=== PATIENT | male | born 1985 | race Caucasian/White ===

== ENCOUNTER 2017-01-17 04:37 | Emergency (ER) | payer OTHER ==
[2017-01-17] MEDS ORDERED: Ketorolac INJ* 30 MG/ML 1 ML VIAL IV ONE (04:57)
[2017-01-17] MEDS ORDERED: NS 0.9% 1000 ML* 1,000 ML IV ONE (04:57)
[2017-01-17] MEDS ORDERED: Ondansetron INJ* 2 MG/ML VIAL IV ONE ×2 (04:57→07:46)
--- NOTE | 2017-01-17 05:14 | ED ---
Chucho Sanders Salem, scribed for Cal Bledsoe MD on 01/17/17 at 0458 . Back Pain - HPI Summary HPI Summary: Patient is a 31 y/o M who presents to the ED with left flank pain for the past 3 days. He reports vomiting and nausea, but denies fever or dysuria. He reports taking Tylenol and Mylanta with little to no alleviation. PMHx significant for Polycystic kidney Disease and renal calculi. - History of Current Complaint Chief Complaint: EDFlankPain Stated Complaint: VOMITING/LOWER LEFT FLANK PAIN Time Seen by Provider: 01/17/17 04:57 Hx Obtained From: Patient Onset/Duration: Gradual Onset, Lasting Days, Still Present Onset/Duration: Started Days Ago, Atraumatic, Still Present Timing: Constant, Lasting Days Back Pain Location: Is Discrete @ - Left flank. Severity Initially: Moderate Severity Currently: Moderate Pain Intensity: 9 Pain Scale Used: 0-10 Numeric Aggravating Symptom(s): Nothing Alleviating Symptom(s): Nothing Associated Signs And Symptoms: Positive: Flank Pain - Allergies/Home Medications Allergies/Adverse Reactions: Allergies Allergy/AdvReac Type Severity Reaction Status Date / Time Penicillins Allergy Severe Anaphylatic Verified 01/17/17 04:52 Shock Hydromorphone [From Dilaudid] Allergy Intermediate Hives Verified 01/17/17 04:52 PMH/Surg Hx/FS Hx/Imm Hx History: Reports: Hx Kidney Stones, Hx Renal Disease - hx of kidney dz - Surgical History Surgery Procedure, Year, and Place: undistended testicle as a child later removed Infectious Disease History: No Infectious Disease History: Denies: Traveled Outside the [place] in Last 30 Days - Family History Known Family History: Positive: Cardiac Disease, Renal Disease - PKD Family History: Polycystic kidney dz - Social History Alcohol Use: None Hx Substance Use: No Substance Use Type: Reports: None Hx Tobacco Use: No Smoking Status (MU): Never Smoked Tobacco Review of Systems Negative: Fever Positive: Vomiting, Nausea Positive: flank pain. Negative: dysuria All Other Systems Reviewed And Are Negative: Yes Physical Exam Triage Information Reviewed: Yes Vital Signs On Initial Exam: Initial Vitals Temp Pulse Resp BP Pulse Ox 97.8 F 120 16 150/88 96 01/17/17 04:45 01/17/17 04:45 01/17/17 04:45 01/17/17 04:45 01/17/17 04:45 Vital Signs Reviewed: Yes Appearance: Positive: No Pain Distress, Obese - morbidly Skin: Positive: Warm Head/Face: Positive: Normal Head/Face Inspection Eyes: Positive: STEPHEN ENT: Positive: Hearing grossly normal Neck: Positive: Supple Respiratory/Lung Sounds: Positive: Clear to Auscultation, Breath Sounds Present Cardiovascular: Positive: RRR Abdomen Description: Positive: Nontender, Soft, Other: - obese. Negative: CVA Tenderness (R), CVA Tenderness (L) Musculoskeletal: Positive: Strength/ROM Intact Neurological: Positive: Normal Gait Diagnostics - Vital Signs Vital Signs Temp Pulse Resp BP Pulse Ox 01/17/17 04:45 97.8 F 115 20 150/88 96 - Laboratory Result Diagrams: 01/17/17 05:42 01/17/17 05:42 Lab Statement: Any lab studies that have been ordered have been reviewed, and results considered in the medical decision making process. Re-Evaluation - Re-Evaluation First Eval Re-Evaluation Time: 10:00 - DISCUSSED DISCHARGE ADN IMAGING RESULTS Back Pain Course/Dx - Course Course Of Treatment: 31 y/o M presents with left flank pain for the past 3 days. He reports vomiting and nausea, but denies fever or dysuria. Pt received fluids, Toradol, and Zofran in the ED course. Pt will be signed out at shift change. - Diagnoses Provider Diagnoses: Flank pain, PKD (polycystic kidney disease) Discharge - Discharge Plan Condition: Stable Disposition: HOME Discharge Disposition Comment: Sign out to Dr. Summers at shift change. Patient Education Materials: Autosomal Dominant Polycystic Kidney Disease (ED) , Flank Pain (ED) Referrals: Eddie Villagomez MD [Primary Care Provider] - 2 Days The documentation as recorded by the Chucho mckay Salem accurately reflects the service I personally performed and the decisions made by Rakan tim David, MD.
[2017-01-17 05:34] VITALS: BP 149/112
[2017-01-17 06:05] LABS: Hematocrit 45 % (42-52); Hemoglobin 14.1 g/dl (14.0-18.0); Mean Corpuscular HGB Conc 31 g/dl (31-36); Mean Corpuscular Hemoglobin 26 pg (27-31); Mean Corpuscular Volume 82 fL (80-94); Mean Platelet Volume 9 um3 (7.4-10.4); Red Blood Count 5.45 10^6/ul (4.0-5.4); Red Cell Distribution Width 15 % (10.5-15); White Blood Count 12.1 10^3/ul (3.5-10.8)
[2017-01-17 06:13] LABS: Albumin 4.3 g/dL (3.2-5.2); BUN/Creatinine Ratio 12.3 (8-20); C Reactive Protein 21.62 mg/L (< 5.00); Calcium 9.4 mg/dL (8.6-10.3); EGFR African American 35.1 (>60); EGFR Non-African American 27.3 (>60); Magnesium 1.7 mg/dL (1.9-2.7); Potassium 3.8 mmol/L (3.5-5.0); Total Bilirubin 0.4 mg/dL (0.2-1.0); Total Protein 8.3 g/dL (6.4-8.9)
[2017-01-17] MEDS ORDERED: fentaNYL* 50 MCG/ML 2 ML VIAL (100 MCG VIAL) IV SLOW PU ONE (07:47)
--- NOTE | 2017-01-17 08:43 | RAD ---
Indication: Left flank pain. CT of the abdomen and pelvis was performed without oral or IV contrast administration. The study is severely limited as the patient due to patient's body habitus. Multiple cysts are noted in both kidneys some of which are hyperdense. No hydronephrosis is noted. The lung bases demonstrate no pleural fluid, nodules or masses. Heart is of normal size without evidence of pericardial effusion. The liver and spleen are unremarkable. No adrenal lesions are noted. No hydroureter is identified. The urinary bladder is otherwise unremarkable with no evidence of calculi. The pancreas demonstrates no mass or pancreatic duct dilatation. No calcified gallstones are noted. No dilated loops of bowel are noted. IMPRESSION: Limited study due to patient's body habitus. Polycystic kidney disease. No evidence of obstructive uropathy is noted.
--- NOTE | 2017-01-17 18:49 | ED ---
Baljit Sanders Auryana, scribed for Kevin Summers MD on 01/17/17 at 0933 . Progress - Progress Note Progress Note: Sign out from Dr. Bledsoe to Dr. Summers at 07:00 pending management of symptoms. 31 year old male present with left sided flank pain starting 3 days ago. Tylenol LIDAR ANALYST, Toradol here in ED. Patient reports no improvement of pain. PMHx is significant for PKD. VITAL SIGNS: Reviewed. GENERAL: Patient is a obese male who is lying comfortable in the stretcher. Patient is not in any acute respiratory distress. HEAD AND FACE: Normocephalic and atraumatic. EYES: PERRLA, EOMI x 2, No injected conjunctiva. EARS: Hearing grossly intact. Ear canals and tympanic membranes are WNL. MOUTH: Oropharynx within normal limits. NECK: Supple, trachea is midline, no adenopathy, no JVD. CHEST: Symmetric, no tenderness at palpation LUNGS: Clear to auscultation bilaterally. No wheezing or crackles. CVS: RRR, S1 and S2 present, no murmurs or gallops appreciated. ABDOMEN: Soft. Tenderness at the left flank. No signs of distention. Positive bowel sounds. No rebound no guarding, and no masses palpated. No abdominal bruit or pulsations. EXTREMITIES: FROM in all major joints, no edema, no cyanosis or clubbing. NEURO: Alert and oriented x 3. No acute neurological deficits. Speech is normal. SKIN: Dry and warm - Results/Orders Results/Orders: CT ABD/PEL W/O- IMPRESSION: Limited study due to patient's body habitus. Polycystic kidney disease. No evidence of obstructive uropathy is noted. Re-Evaluation - Re-Evaluation First Eval Re-Evaluation Time: 10:00 - DISCUSSED DISCHARGE ADN IMAGING RESULTS Course/Dx - Course Course Of Treatment: Sign out from Dr. Bledsoe to Dr. Summers at 07:00 pending management of symptoms. 31 year old male present with left sided flank pain starting 3 days ago. Tylenol LIDAR ANALYST, Toradol here in ED. Patient reports no improvement of pain. PMHx is significant for PKD. On physical exam, patient has left sided flank pain. CT ABD/PEL shows PKD. Test results show WBC 21.1 and chronic renal failure. Patient was given Toradol by Dr. Bledsoe. He denies any improvement of pain. Therefore, the patient was given morphine. We did CT ABD/ PEL for patient. CT ABD/PEL IMPRESSION: Limited study due to patient's body habitus. Polycystic kidney disease. No evidence of obstructive uropathy is noted. After, the patient received more morphine and his symptoms improved. Patient is asymptomatic at this point. Therefore the patient will be discharged home with follow up to PCP. - Diagnoses Provider Diagnoses: Flank pain, PKD (polycystic kidney disease) The documentation as recorded by the Baljit mckay Auryana accurately reflects the service I personally performed and the decisions made by me, Kevin Summers MD.
== END 2017-01-17 10:18 | disposition home or self-care (01) ==
LOC: ED 04:37
DX: R10.84 Generalized abdominal pain (principal); Q61.3 Polycystic kidney, unspecified
CPT/HCPCS: 36415; 74176; 80053; 83605; 83690; 83735; 85025; 86140; 96374; 96375; 99283; J1885; J2405; J3010

== ENCOUNTER 2017-04-11 22:02 | Inpatient (IN) | payer OTHER ==
[2017-04-11] MEDS ORDERED: Ondansetron INJ* 2 MG/ML VIAL IV ONE (22:50)
[2017-04-11] MEDS ORDERED: Morphine INJ* 4 MG/ML 1 ML CARPUJECT IV ONE (22:50)
[2017-04-11] MEDS: NS 0.9% 1000 ML* 1,000 ML IV SCH (22:59)
[2017-04-11 23:11] LABS: Hematocrit 43 % (42-52); Mean Corpuscular HGB Conc 33 g/dl (31-36); Mean Corpuscular Hemoglobin 26 pg (27-31); Mean Corpuscular Volume 79 fL (80-94); Mean Platelet Volume 8 um3 (7.4-10.4); Red Blood Count 5.38 10^6/ul (4.0-5.4); Red Cell Distribution Width 16 % (10.5-15); White Blood Count 10.8 10^3/ul (3.5-10.8)
[2017-04-11 23:27] LABS: Albumin 3.8 g/dL (3.2-5.2); BUN/Creatinine Ratio 11.2 (8-20); C Reactive Protein 96.63 mg/L (< 5.00); EGFR African American 28.7 (>60); EGFR Non-African American 22.4 (>60); Globulin 4.6 g/dL (2-4); Magnesium 1.7 mg/dL (1.9-2.7); Potassium 4.5 mmol/L (3.5-5.0); Total Bilirubin 0.3 mg/dL (0.2-1.0); Total Protein 8.4 g/dL (6.4-8.9)
[2017-04-11 23:30] LABS: Troponin I 0.06 ng/mL (<0.04)
[2017-04-11 23:41] LABS: TSH (Thyroid Stimulating Horm) 2.03 mcIU/mL (0.34-5.60)
[2017-04-12] MEDS ORDERED: Morphine INJ* 4 MG/ML 1 ML CARPUJECT IV ONE (00:24)
--- NOTE | 2017-04-12 00:26 | ED ---
Giorgio Sanders Nikita, scribed for Imtiaz Pulido MD on 04/11/17 at 2255 . Complex/Multi-Sys Presentation - HPI Summary HPI Summary: This patient is a 31 year old M presenting to ED with a chief complaint of L flank pain since 5 days ago. The CC is described as non-radiating. The patient rates the pain 9/10 in severity. Symptoms aggravated by laughing and urination ( at onset, not currently). Symptoms alleviated by nothing. Patient reports nausea , vomiting, SOB, CP (tightening, since 3 days ago), and cough from allergies. Patient denies wheezing, fever, chills, chest congestion, and urinary symptoms. - History Of Current Complaint Chief Complaint: EDChestPainROMI Time Seen by Provider: 04/11/17 22:39 Hx Obtained From: Patient Onset/Duration: Sudden Onset, Lasting Days - 5 days for L flank pain, 3 days ago for CP, Still Present Timing: Constant, Days Severity Currently: Severe Severity Initially: Severe Location: Pain At: - L flank and chest Character: Pressure - chest Aggravating Factor(s): urination at onset (not currently), laughing Alleviating Factor(s): nothing Associated Signs And Symptoms: Positive: Other - Patient reports nausea, vomiting, SOB, CP (tightening, since 3 days ago), and cough from allergies. Patient denies wheezing, fever, chills, chest congestion, and urinary symptoms. - Allergies/Home Medications Allergies/Adverse Reactions: Allergies Allergy/AdvReac Type Severity Reaction Status Date / Time Penicillins Allergy Severe Anaphylatic Verified 04/11/17 22:21 Shock Hydromorphone [From Dilaudid] Allergy Intermediate Hives Verified 04/11/17 22:21 PMH/Surg Hx/FS Hx/Imm Hx History: Reports: Hx Kidney Stones, Hx Renal Disease - hx of kidney dz - Surgical History Surgery Procedure, Year, and Place: undistended testicle as a child later removed Infectious Disease History: No Infectious Disease History: Denies: Traveled Outside the [place] in Last 30 Days - Family History Known Family History: Positive: Cardiac Disease, Renal Disease - PKD Family History: Polycystic kidney dz - Social History Alcohol Use: None Hx Substance Use: No Substance Use Type: Reports: None Hx Tobacco Use: No Smoking Status (MU): Never Smoked Tobacco Review of Systems Negative: Fever, Chills Positive: Other - denies wheezing, chest congestion Positive: Chest Pain - pressure Positive: Shortness Of Breath, Cough Positive: Abdominal Pain - L flank, Vomiting, Nausea Positive: no symptoms reported All Other Systems Reviewed And Are Negative: Yes Physical Exam Triage Information Reviewed: Yes Vital Signs On Initial Exam: Initial Vitals Temp Pulse Resp BP Pulse Ox 99.0 F 114 24 177/96 96 04/11/17 22:19 04/11/17 22:19 04/11/17 22:19 04/11/17 22:19 04/11/17 22:19 Vital Signs Reviewed: Yes Appearance: Positive: Well-Appearing, Pain Distress - mild Skin: Positive: Warm, Skin Color Reflects Adequate Perfusion, Dry Head/Face: Positive: Normal Head/Face Inspection Eyes: Positive: EOMI, STEPHEN ENT: Positive: Normal ENT inspection Neck: Positive: Supple, Nontender Respiratory/Lung Sounds: Positive: Clear to Auscultation, Breath Sounds Present Cardiovascular: Positive: RRR Abdomen Description: Positive: Soft, CVA Tenderness (L) Bowel Sounds: Positive: Present Musculoskeletal: Positive: Normal, Strength/ROM Intact Neurological: Positive: Normal, Sensory/Motor Intact, Alert, Oriented to Person Place, Time Psychiatric: Positive: Affect/Mood Appropriate Diagnostics - Vital Signs Vital Signs Temp Pulse Resp BP Pulse Ox 04/11/17 22:19 99.0 F 114 24 177/96 96 - Laboratory Lab Results: Lab Results 04/11/17 04/11/17 04/11/17 Range/Units 23:00 23:00 23:00 WBC (3.5-10.8) 10^3/ul RBC (4.0-5.4) 10^6/ul Hgb (14.0-18.0) g/dl Hct (42-52) % MCV (80-94) fL MCH (27-31) pg MCHC (31-36) g/dl RDW (10.5-15) % Plt Count (150-450) 10^3/ul MPV (7.4-10.4) um3 Neut % (Auto) (38-83) % Lymph % (Auto) (25-47) % [place] % (Auto) (1-9) % Eos % (Auto) (0-6) % Baso % (Auto) (0-2) % Absolute Neuts (auto) (1.5-7.7) 10^3/ul Absolute Lymphs (auto) (1.0-4.8) 10^3/ul Absolute Monos (auto) (0-0.8) 10^3/ul Absolute Eos (auto) (0-0.6) 10^3/ul Absolute Basos (auto) (0-0.2) 10^3/ul Absolute Nucleated RBC 10^3/ul Nucleated RBC % INR (Anticoag Therapy) 1.00 (0.89-1.11) APTT 31.7 (26.0-36.3) seconds D-Dimer, Quantitative 615 H (Less Than 230) ng/mL Sodium 137 (133-145) mmol/L Potassium 4.5 (3.5-5.0) mmol/L Chloride 109 (101-111) mmol/L Carbon Dioxide 19 L (22-32) mmol/L Anion Gap 9 (2-11) mmol/L BUN 37 H (6-24) mg/dL Creatinine 3.29 H (0.67-1.17) mg/dL Est GFR ( Amer) 28.7 (>60) Est GFR (Non-Af Amer) 22.4 (>60) BUN/Creatinine Ratio 11.2 (8-20) Glucose 102 H (70-100) mg/dL Lactic Acid 1.2 (0.5-2.0) mmol/L Calcium 9.0 (8.6-10.3) mg/dL Magnesium 1.7 L (1.9-2.7) mg/dL Total Bilirubin 0.30 (0.2-1.0) mg/dL AST 15 (13-39) U/L ALT 12 (7-52) U/L Alkaline Phosphatase 81 (34-104) U/L Troponin I 0.06 H* (<0.04) ng/mL C-Reactive Protein 96.63 H (< 5.00) mg/L B-Natriuretic Peptide ( - 100) pg/mL Total Protein 8.4 (6.4-8.9) g/dL Albumin 3.8 (3.2-5.2) g/dL Globulin 4.6 H (2-4) g/dL Albumin/Globulin Ratio 0.8 L (1-3) Lipase 30 (11.0-82.0) U/L TSH 2.03 (0.34-5.60) mcIU/mL 04/11/17 04/11/17 Range/Units 23:00 23:00 WBC 10.8 (3.5-10.8) 10^3/ul RBC 5.38 (4.0-5.4) 10^6/ul Hgb 14.0 (14.0-18.0) g/dl Hct 43 (42-52) % MCV 79 L (80-94) fL MCH 26 L (27-31) pg MCHC 33 (31-36) g/dl RDW 16 H (10.5-15) % Plt Count 272 (150-450) 10^3/ul MPV 8 (7.4-10.4) um3 Neut % (Auto) 71.6 (38-83) % Lymph % (Auto) 19.3 L (25-47) % [place] % (Auto) 6.9 (1-9) % Eos % (Auto) 1.2 (0-6) % Baso % (Auto) 1.0 (0-2) % Absolute Neuts (auto) 7.7 (1.5-7.7) 10^3/ul Absolute Lymphs (auto) 2.1 (1.0-4.8) 10^3/ul Absolute Monos (auto) 0.7 (0-0.8) 10^3/ul Absolute Eos (auto) 0.1 (0-0.6) 10^3/ul Absolute Basos (auto) 0.1 (0-0.2) 10^3/ul Absolute Nucleated RBC 0.01 10^3/ul Nucleated RBC % 0 INR (Anticoag Therapy) (0.89-1.11) APTT (26.0-36.3) seconds D-Dimer, Quantitative (Less Than 230) ng/mL Sodium (133-145) mmol/L Potassium (3.5-5.0) mmol/L Chloride (101-111) mmol/L Carbon Dioxide (22-32) mmol/L Anion Gap (2-11) mmol/L BUN (6-24) mg/dL Creatinine (0.67-1.17) mg/dL Est GFR ( Amer) (>60) Est GFR (Non-Af Amer) (>60) BUN/Creatinine Ratio (8-20) Glucose (70-100) mg/dL Lactic Acid (0.5-2.0) mmol/L Calcium (8.6-10.3) mg/dL Magnesium (1.9-2.7) mg/dL Total Bilirubin (0.2-1.0) mg/dL AST (13-39) U/L ALT (7-52) U/L Alkaline Phosphatase (34-104) U/L Troponin I (<0.04) ng/mL C-Reactive Protein (< 5.00) mg/L B-Natriuretic Peptide 22 ( - 100) pg/mL Total Protein (6.4-8.9) g/dL Albumin (3.2-5.2) g/dL Globulin (2-4) g/dL Albumin/Globulin Ratio (1-3) Lipase (11.0-82.0) U/L TSH (0.34-5.60) mcIU/mL Result Diagrams: 04/11/17 23:00 04/11/17 23:00 Lab Statement: Any lab studies that have been ordered have been reviewed, and results considered in the medical decision making process. - CT Abd/Pel CT Interpretation Completed By: Radiologist - Awaiting radiologist interpretation. See [employer] for results. - EKG 2210 Cardiac Rate: Tachycardia - 113 bpm EKG Rhythm: Sinus Rhythm ST Segment: Normal Ectopy: None Complex Multi-Symp Course/Dx Assessment/Plan: This patient is a 31 year old M presenting to ED with a chief complaint of L flank pain since 5 days ago. The CC is described as non- radiating. The patient rates the pain 9/10 in severity. Symptoms aggravated by laughing and urination (at onset, not currently). Symptoms alleviated by nothing. Patient reports nausea, vomiting, SOB, CP (tightening, since 3 days ago ), and cough from allergies. Patient denies wheezing, fever, chills, chest congestion, and urinary symptoms. Awaiting radiologist interpretation for Abd/ Pel CT. See [employer] for results. EKG reveals sinus tachycardia at 113 bpm, normal ST, and no ectopy. In the ED course, pt was given fluids and pain medication. Medications reviewed. BP noted and advised to follow up with PCP. ADMIT HOSPITALIST STABLE. NO CRITICAL CARE TIME. - Diagnoses Provider Diagnoses: Flank pain, Troponin I above reference range, D-dimer, elevated, Chest pain, Shortness of breath, Polycystic kidney disease Discharge - Discharge Plan Condition: Stable Disposition: ADMITTED TO [facility] Referrals: Eddie Villagomez MD [Primary Care Provider] - The documentation as recorded by the Giorgio mckay Nikita accurately reflects the service I personally performed and the decisions made by , Imtiaz Pulido MD.
[2017-04-12] MEDS ORDERED: Melatonin (NF) 3 MG TAB PO PRN (00:32)
[2017-04-12] MEDS ORDERED: Ondansetron INJ* 2 MG/ML VIAL IV PRN (00:32)
[2017-04-12] MEDS ORDERED: Heparin VIAL(*) 5000 UNITS/ML VIAL (FIVE THOUSAND) ONE (00:45)
[2017-04-12] MEDS: Morphine INJ* 4 MG/ML 1 ML CARPUJECT IV PRN ×4 (00:47→20:25)
[2017-04-12] MEDS: Heparin VIAL(*) 5000 UNITS/ML VIAL (FIVE THOUSAND) IV SCH ×3 (00:52→17:27)
[2017-04-12] MEDS: Heparin DRIP 25,000 UNITS(*) 25,000 UNITS/500 ML BAG IVPB SCH ×2 (01:06→13:32)
--- NOTE | 2017-04-12 01:39 | HP ---
H&P (Free Text) History and Physical: PCP: Royal Villagomez MD Date/Time: 04/12/2017 0030 CC: L flank pain & chest pressure HPI: Mr Bellamy is a super morbidly obese 31YO male HX polycystic renal disease stg 4 & intermittent L flank pain presenting with onset of his typical L flank pain Thursday. This continued into Thursday when he developed N/V, last emesis morning of 04/11. Thursday he developed chest tightness similar to a previous pulled muscle but associated with painful inspiration and SOB for which his roommate insisted he come to the ED to be evaluated. He denies F/C, sweats, cough, congestion, or other issues. PMedHx PCKD CKD stg 4 heart murmur migraines HTN super morbid obesity Ambulatory Orders Nursing to reconcile. HYDROcodone/ACETAMIN 5-325 MG* [[place] 5-325 TAB*] 1 tab PO Q4H PRN #10 tab MDD 6 10/03/15 Sulfamethox/Trimethoprim DS* [Bactrim DS 800/160 TAB*] 1 tab PO BID #18 tab Allergies Penicillins Allergy (Severe, Verified 04/11/17 22:21) Anaphylatic Shock Hydromorphone [From Dilaudid] Allergy (Intermediate, Verified 04/11/17 22:21) Hives PSurgHx T&A L orchiectomy 2nd suspicion of CA, but unsure if positive SocHx: denies tobacco, alcohol, recreational drugs; lives with 2 roommates and his fiance; on disability; full code status FamHx: negative for PCKD ROS: as above, otherwise reviewed and all were negative vitals: Vital Signs Temp 37.2 C 04/11/17 22:19 Pulse 106 04/12/17 01:52 Resp 19 04/12/17 02:00 BP 152/90 04/12/17 02:00 Pulse Ox 96 04/12/17 01:52 Intake & Output 04/11/17 04/11/17 04/12/17 11:59 23:59 11:59 Weight 197.313 kg Constitutional: NAD, normally developed, super morbidly obese white male HEENM: atraumatic; sclera/conjunctiva: non-icteric/clear; hearing: clinically intact; oropharynx: clear, mucosa moist Neck: soft tissue: non-tender; thyroid: normal Pulmonary: clear to auscultation bilaterally, good aeration, no accessory muscle use CV: RR/RR, normal S1S2, no carotid bruit, no jugular venous distention, 2+ B DP/ PT, no edema Abdominal: soft, non-distended, non-tender, no rebound/guarding/rigidity, normoactive bowel sounds, no hepatosplenomegaly or masses, L>R costovertebral angle tenderness Musculoskeletal: general: grossly intact; gait: stable Integumental: normal appearance and texture of exposed skin Psychiatric orientation: AA&O to PPS affect: calm mood: pleasant eye contact: good content: reliable responses: timely insight: good to fair Testing: Lab Results 04/11/17 04/11/17 04/11/17 Range/Units 23:00 23:00 23:00 WBC (3.5-10.8) 10^3/ul RBC (4.0-5.4) 10^6/ul Hgb (14.0-18.0) g/dl Hct (42-52) % MCV (80-94) fL MCH (27-31) pg MCHC (31-36) g/dl RDW (10.5-15) % Plt Count (150-450) 10^3/ul MPV (7.4-10.4) um3 Neut % (Auto) (38-83) % Lymph % (Auto) (25-47) % [place] % (Auto) (1-9) % Eos % (Auto) (0-6) % Baso % (Auto) (0-2) % Absolute Neuts (auto) (1.5-7.7) 10^3/ul Absolute Lymphs (auto) (1.0-4.8) 10^3/ul Absolute Monos (auto) (0-0.8) 10^3/ul Absolute Eos (auto) (0-0.6) 10^3/ul Absolute Basos (auto) (0-0.2) 10^3/ul Absolute Nucleated RBC 10^3/ul Nucleated RBC % INR (Anticoag Therapy) 1.00 (0.89-1.11) APTT 31.7 (26.0-36.3) seconds D-Dimer, Quantitative 615 H (Less Than 230) ng/mL Sodium 137 (133-145) mmol/L Potassium 4.5 (3.5-5.0) mmol/L Chloride 109 (101-111) mmol/L Carbon Dioxide 19 L (22-32) mmol/L Anion Gap 9 (2-11) mmol/L BUN 37 H (6-24) mg/dL Creatinine 3.29 H (0.67-1.17) mg/dL Est GFR ( Amer) 28.7 (>60) Est GFR (Non-Af Amer) 22.4 (>60) BUN/Creatinine Ratio 11.2 (8-20) Glucose 102 H (70-100) mg/dL Lactic Acid 1.2 (0.5-2.0) mmol/L Calcium 9.0 (8.6-10.3) mg/dL Magnesium 1.7 L (1.9-2.7) mg/dL Total Bilirubin 0.30 (0.2-1.0) mg/dL AST 15 (13-39) U/L ALT 12 (7-52) U/L Alkaline Phosphatase 81 (34-104) U/L Troponin I 0.06 H* (<0.04) ng/mL C-Reactive Protein 96.63 H (< 5.00) mg/L B-Natriuretic Peptide ( - 100) pg/mL Total Protein 8.4 (6.4-8.9) g/dL Albumin 3.8 (3.2-5.2) g/dL Globulin 4.6 H (2-4) g/dL Albumin/Globulin Ratio 0.8 L (1-3) Lipase 30 (11.0-82.0) U/L TSH 2.03 (0.34-5.60) mcIU/mL 04/11/17 04/11/17 Range/Units 23:00 23:00 WBC 10.8 (3.5-10.8) 10^3/ul RBC 5.38 (4.0-5.4) 10^6/ul Hgb 14.0 (14.0-18.0) g/dl Hct 43 (42-52) % MCV 79 L (80-94) fL MCH 26 L (27-31) pg MCHC 33 (31-36) g/dl RDW 16 H (10.5-15) % Plt Count 272 (150-450) 10^3/ul MPV 8 (7.4-10.4) um3 Neut % (Auto) 71.6 (38-83) % Lymph % (Auto) 19.3 L (25-47) % [place] % (Auto) 6.9 (1-9) % Eos % (Auto) 1.2 (0-6) % Baso % (Auto) 1.0 (0-2) % Absolute Neuts (auto) 7.7 (1.5-7.7) 10^3/ul Absolute Lymphs (auto) 2.1 (1.0-4.8) 10^3/ul Absolute Monos (auto) 0.7 (0-0.8) 10^3/ul Absolute Eos (auto) 0.1 (0-0.6) 10^3/ul Absolute Basos (auto) 0.1 (0-0.2) 10^3/ul Absolute Nucleated RBC 0.01 10^3/ul Nucleated RBC % 0 INR (Anticoag Therapy) (0.89-1.11) APTT (26.0-36.3) seconds D-Dimer, Quantitative (Less Than 230) ng/mL Sodium (133-145) mmol/L Potassium (3.5-5.0) mmol/L Chloride (101-111) mmol/L Carbon Dioxide (22-32) mmol/L Anion Gap (2-11) mmol/L BUN (6-24) mg/dL Creatinine (0.67-1.17) mg/dL Est GFR ( Amer) (>60) Est GFR (Non-Af Amer) (>60) BUN/Creatinine Ratio (8-20) Glucose (70-100) mg/dL Lactic Acid (0.5-2.0) mmol/L Calcium (8.6-10.3) mg/dL Magnesium (1.9-2.7) mg/dL Total Bilirubin (0.2-1.0) mg/dL AST (13-39) U/L ALT (7-52) U/L Alkaline Phosphatase (34-104) U/L Troponin I (<0.04) ng/mL C-Reactive Protein (< 5.00) mg/L B-Natriuretic Peptide 22 ( - 100) pg/mL Total Protein (6.4-8.9) g/dL Albumin (3.2-5.2) g/dL Globulin (2-4) g/dL Albumin/Globulin Ratio (1-3) Lipase (11.0-82.0) U/L TSH (0.34-5.60) mcIU/mL ECG, personally reviewed: sinus tachycardia rate 113, no ischemia CXR, personally reviewed: no acute process, L costophrenic angle not imaged CT abd/pel WO, personally reviewed: IMPRESSION: Enlarged kidneys with cystic replacement stable from prior study. Findings suggest polycystic kidney disease and correlation with renal function is recommended. Impression: 31YO male HX PCKD stg 4 presents with L flank pain, chest tightness , SOB, N/V, an elevated d-dimer, & elevated troponin DIAGNOSIS & PLAN Primary chest tightness : elevated d-dimer & troponin are likely 2nd to CKD stg 4 but without baseline values will admit for evaluation of PE : unable to obtain CTA chest 2nd CKD stg 4 : heparin GTT, patient advised of & accepts bleeding risk : V/Q scan in AM : pain control : anti-emetics : telemetry : trend troponin : supportive care PCKD w/ L flank pain : pain control Secondary migraines : review meds once reconciled HTN : review meds once reconciled Admission Rational: CDU observation for r/o PE & ACS DVTp: heparin GTT Code Status: full
[2017-04-12] MEDS: NS 0.9% 1000 ML* 1,000 ML IV SCH ×3 (03:59→20:10)
[2017-04-12] MEDS: Omeprazole CAP* 20 MG PO SCH (06:17)
--- NOTE | 2017-04-12 07:46 | RAD ---
HISTORY: Shortness of breath COMPARISONS: None VIEWS: 3: frontal dual-energy view of the chest FINDINGS: CARDIOMEDIASTINAL SILHOUETTE: The cardiomediastinal silhouette is normal. JAD: The jad are normal. PLEURA: The costophrenic angles are sharp. No pleural abnormalities are noted. LUNG PARENCHYMA: The lungs are clear. ABDOMEN: The upper abdomen is clear. There is no subphrenic gas. BONES AND SOFT TISSUES: No bone or soft tissue abnormalities are noted. OTHER: None. IMPRESSION: NO ACTIVE CARDIOPULMONARY DISEASE.
--- NOTE | 2017-04-12 07:55 | RAD ---
CLINICAL HISTORY: Left flank pain COMPARISON: January 17, 2017 TECHNIQUE: Multiple contiguous axial CT scans were obtained of the abdomen and pelvis, without intravenous contrast enhancement. Coronal and sagittal multiplanar reformations are submitted for review. Oral contrast was not administered. FINDINGS: The study is limited by the lack of intravenous contrast. This limits evaluation of the solid organs and vasculature. Evaluation is also limited by patient body habitus. LUNG BASES: The lung bases are clear. LIVER: The liver is normal in shape, size, contour, and attenuation. BILE DUCTS: There is no intrahepatic or extrahepatic biliary dilatation. GALLBLADDER: The gallbladder is normal, without pericholecystic inflammatory change. PANCREAS: The pancreas is normal, without mass or ductal dilatation. SPLEEN: Normal in size and appearance. UPPER GI TRACT: Evaluation of the gastrointestinal tract is limited by incomplete gastric distention. The upper GI tract is unremarkable. SMALL BOWEL AND MESENTERY: The small bowel is normal in contour, course, and caliber. There is no obstruction or dilatation. COLON: The colon is normal in contour, course, caliber. There is no pericolonic inflammatory change. ADRENALS: Normal bilaterally. 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 There is no appreciable hydronephrosis. BLADDER: The bladder is smooth in contour. PELVIC ORGANS: The prostate gland is normal. The seminal vesicles are symmetric. AORTA: The aorta is normal. IVC: Unremarkable LYMPH NODES: There is no lymphadenopathy by size criteria. ABDOMINAL WALL: There is a small fat-containing right inguinal hernia. BONES AND SOFT TISSUES: Unremarkable OTHER: None IMPRESSION: STABLE APPEARANCE OF THE KIDNEYS, CONSISTENT WITH POSITIVE KIDNEY DISEASE. THERE IS NO APPRECIABLE HYDRONEPHROSIS OR NEPHROLITHIASIS.
[2017-04-12] MEDS ORDERED: HYDROcodone/ACETAMIN 5-325 MG* 1 TAB PO PRN (09:15)
--- NOTE | 2017-04-12 09:17 | PN ---
Subjective Date of Service: 04/12/17 Interval History: HOSPITALIST PROGRESS NOTE Patient seen and examined at bedside. Objective Active Medications: Acetaminophen (Tylenol Tab*) 650 mg PO Q6H PRN PRN Reason: FEVER/PAIN Hydrocodone Bitart/Acetaminophen ([place] 5-325 Tab*) 1 tab PO Q4H PRN PRN Reason: PAIN Docusate Sodium (Colace Cap*) 200 mg PO BID RADHA Heparin Sodium (Porcine) (Heparin Vial(*)) 0 units IV .PER PROTOCOL RADHA PRN Reason: Protocol Last Admin: 04/12/17 00:52 Dose: 9,800 units Sodium Chloride (Ns 0.9% 1000 Ml*) 1,000 mls @ 150 mls/hr IV PER RATE REPLACED BY [facility] Last Admin: 04/12/17 03:59 Dose: 150 mls/hr Heparin Sodium/Dextrose (Heparin Drip 25,000 Units(*)) 25,000 units in 500 mls @ 0 mls/hr IVPB .PER RATE RADHA; Per Protocol PRN Reason: Protocol Last Admin: 04/12/17 01:06 Dose: 47 mls/hr Melatonin (Melatonin (Nf)) 3 mg PO BEDTIME PRN; Protocol PRN Reason: Sleep Morphine Sulfate (Morphine Inj (Syringe)*) 4 mg IV Q4H PRN PRN Reason: PAIN Last Admin: 04/12/17 04:40 Dose: 4 mg Omeprazole (Prilosec Cap*) 20 mg PO DAILY@0600 REPLACED BY [facility] Last Admin: 04/12/17 06:17 Dose: 20 mg Ondansetron HCl (Zofran Inj*) 4 mg IV Q6H PRN PRN Reason: NAUSEA Vital Signs 04/12/17 04/12/17 04/12/17 00:47 01:00 01:52 Temperature Pulse Rate 99 106 Respiratory 20 21 20 Rate Blood Pressure 164/88 (mmHg) O2 Sat by Pulse 98 96 Oximetry 04/12/17 04/12/17 04/12/17 02:00 02:08 03:32 Temperature 98.8 F Pulse Rate 127 Respiratory 19 20 20 Rate Blood Pressure 152/90 156/96 (mmHg) O2 Sat by Pulse 93 Oximetry 04/12/17 04/12/17 04:40 05:40 Temperature Pulse Rate Respiratory 20 20 Rate Blood Pressure (mmHg) O2 Sat by Pulse Oximetry Result Diagrams: 04/11/17 23:00 04/11/17 23:00 Additional Lab and Data: Lab Results 04/11/17 04/11/17 04/11/17 Range/Units 23:00 23:00 23:00 WBC (3.5-10.8) 10^3/ul RBC (4.0-5.4) 10^6/ul Hgb (14.0-18.0) g/dl Hct (42-52) % MCV (80-94) fL MCH (27-31) pg MCHC (31-36) g/dl RDW (10.5-15) % Plt Count (150-450) 10^3/ul MPV (7.4-10.4) um3 Neut % (Auto) (38-83) % Lymph % (Auto) (25-47) % [place] % (Auto) (1-9) % Eos % (Auto) (0-6) % Baso % (Auto) (0-2) % Absolute Neuts (auto) (1.5-7.7) 10^3/ul Absolute Lymphs (auto) (1.0-4.8) 10^3/ul Absolute Monos (auto) (0-0.8) 10^3/ul Absolute Eos (auto) (0-0.6) 10^3/ul Absolute Basos (auto) (0-0.2) 10^3/ul Absolute Nucleated RBC 10^3/ul Nucleated RBC % INR (Anticoag Therapy) 1.00 (0.89-1.11) APTT 31.7 (26.0-36.3) seconds D-Dimer, Quantitative 615 H (Less Than 230) ng/mL Sodium 137 (133-145) mmol/L Potassium 4.5 (3.5-5.0) mmol/L Chloride 109 (101-111) mmol/L Carbon Dioxide 19 L (22-32) mmol/L Anion Gap 9 (2-11) mmol/L BUN 37 H (6-24) mg/dL Creatinine 3.29 H (0.67-1.17) mg/dL Est GFR ( Amer) 28.7 (>60) Est GFR (Non-Af Amer) 22.4 (>60) BUN/Creatinine Ratio 11.2 (8-20) Glucose 102 H (70-100) mg/dL Lactic Acid 1.2 (0.5-2.0) mmol/L Calcium 9.0 (8.6-10.3) mg/dL Magnesium 1.7 L (1.9-2.7) mg/dL Total Bilirubin 0.30 (0.2-1.0) mg/dL AST 15 (13-39) U/L ALT 12 (7-52) U/L Alkaline Phosphatase 81 (34-104) U/L Troponin I 0.06 H* (<0.04) ng/mL C-Reactive Protein 96.63 H (< 5.00) mg/L B-Natriuretic Peptide ( - 100) pg/mL Total Protein 8.4 (6.4-8.9) g/dL Albumin 3.8 (3.2-5.2) g/dL Globulin 4.6 H (2-4) g/dL Albumin/Globulin Ratio 0.8 L (1-3) Lipase 30 (11.0-82.0) U/L TSH 2.03 (0.34-5.60) mcIU/mL 04/11/17 04/11/17 Range/Units 23:00 23:00 WBC 10.8 (3.5-10.8) 10^3/ul RBC 5.38 (4.0-5.4) 10^6/ul Hgb 14.0 (14.0-18.0) g/dl Hct 43 (42-52) % MCV 79 L (80-94) fL MCH 26 L (27-31) pg MCHC 33 (31-36) g/dl RDW 16 H (10.5-15) % Plt Count 272 (150-450) 10^3/ul MPV 8 (7.4-10.4) um3 Neut % (Auto) 71.6 (38-83) % Lymph % (Auto) 19.3 L (25-47) % [place] % (Auto) 6.9 (1-9) % Eos % (Auto) 1.2 (0-6) % Baso % (Auto) 1.0 (0-2) % Absolute Neuts (auto) 7.7 (1.5-7.7) 10^3/ul Absolute Lymphs (auto) 2.1 (1.0-4.8) 10^3/ul Absolute Monos (auto) 0.7 (0-0.8) 10^3/ul Absolute Eos (auto) 0.1 (0-0.6) 10^3/ul Absolute Basos (auto) 0.1 (0-0.2) 10^3/ul Absolute Nucleated RBC 0.01 10^3/ul Nucleated RBC % 0 INR (Anticoag Therapy) (0.89-1.11) APTT (26.0-36.3) seconds D-Dimer, Quantitative (Less Than 230) ng/mL Sodium (133-145) mmol/L Potassium (3.5-5.0) mmol/L Chloride (101-111) mmol/L Carbon Dioxide (22-32) mmol/L Anion Gap (2-11) mmol/L BUN (6-24) mg/dL Creatinine (0.67-1.17) mg/dL Est GFR ( Amer) (>60) Est GFR (Non-Af Amer) (>60) BUN/Creatinine Ratio (8-20) Glucose (70-100) mg/dL Lactic Acid (0.5-2.0) mmol/L Calcium (8.6-10.3) mg/dL Magnesium (1.9-2.7) mg/dL Total Bilirubin (0.2-1.0) mg/dL AST (13-39) U/L ALT (7-52) U/L Alkaline Phosphatase (34-104) U/L Troponin I (<0.04) ng/mL C-Reactive Protein (< 5.00) mg/L B-Natriuretic Peptide 22 ( - 100) pg/mL Total Protein (6.4-8.9) g/dL Albumin (3.2-5.2) g/dL Globulin (2-4) g/dL Albumin/Globulin Ratio (1-3) Lipase (11.0-82.0) U/L TSH (0.34-5.60) mcIU/mL Assess/Plan/Problems-Billing Assessment:
[2017-04-12] MEDS: Docusate CAP* 100 MG PO SCH ×2 (09:25→20:11)
[2017-04-12] MEDS: Acetaminophen TAB* 325 MG PO PRN (09:25)
[2017-04-12 10:31] LABS: Urine Bacteria Absent (Absent); Urine Bilirubin Negative (Negative); Urine Glucose Negative (Negative); Urine Nitrite Negative (Negative)
--- NOTE | 2017-04-12 12:10 | RAD ---
HISTORY: Possible pulmonary embolism, rule out DVT COMPARISONS: None relevant TECHNIQUE: Multiple transverse and longitudinal ultrasound images were obtained of the bilateral lower extremities from the level of the common femoral vein inferiorly through to the infrapopliteal veins using grayscale, color Doppler, and spectral Doppler imaging with and without compression and with augmentation. FINDINGS: Evaluation is limited by body habitus. The left peroneal veins are not well visualized. VEINS: The venous system of the bilateral lower extremities is compressible throughout its course, with normal flow on color Doppler imaging and normal response to augmentation on spectral Doppler imaging. SOFT TISSUES: Unremarkable. OTHER FINDINGS: None. IMPRESSION: NO RIGHT LOWER EXTREMITY DEEP VEIN THROMBOSIS. NO LEFT LOWER EXTREMITY DEEP VEIN THROMBOSIS
--- NOTE | 2017-04-12 13:06 | RAD ---
HISTORY: Pelvic kidney disease, urinary retention COMPARISONS: CT dated April 11, 2017 TECHNIQUE: Multiple transverse and longitudinal ultrasound images were obtained of the kidneys and bladder using grayscale and color Doppler imaging. FINDINGS: The study is limited by patient body habitus. RIGHT KIDNEY: The renal parenchyma is essentially replaced by multiple cysts. There is no hydronephrosis or nephrolithiasis. The right kidney measures 8.7 x 15.3 x 12.2 cm. LEFT KIDNEY: The renal parenchyma is essentially replaced by multiple cysts. There is no hydronephrosis or nephrolithiasis. The left kidney measures 10.9 x 14.2 x 14.3 cm. BLADDER: The bladder is smooth in contour. Bilateral ureteral jets are identified. The patient voided shortly before the examination. The bladder volume at the time of examination is 133 mL. AORTA AND IVC: No images are submitted of the vasculature. RETROPERITONEUM: Unremarkable. OTHER: None. IMPRESSION: THE RENAL PARENCHYMA IS ESSENTIALLY REPLACED BY INNUMERABLE CYSTS CONSISTENT WITH THE HISTORY OF POLYCYSTIC KIDNEY DISEASE. THE BLADDER VOLUME AT THE TIME OF EXAMINATION IS 133 ML. THE PATIENT REPORTEDLY VOIDED SHORTLY BEFORE THE EXAMINATION.
--- NOTE | 2017-04-12 16:24 | PN ---
Hospitalist Progress Note HOSPITALIST ADDENDUM Mr. Bellamy is a 31yo M with PMH of polycycstic kidney disease, CKD stage 4, super morbid obesity, HTN, migraines, who presented to ED with c/o left flank pain, pleuritic retrosternal CP and dyspnea. He was found to have a minimally elevated troponin and positive d-Dimer. Due to weight limits, V/Q scan is not possible, and due to his renal function, CTA chest is contraindicated. I called [facility] and patient is over their weight limit also. Will continue heparin drip, check LE doppler, and 24h urine for creatinine clearance (to assess his real renal function). Patient in agreement with plan.
[2017-04-12] MEDS: Metoprolol Tartrate IV* 1 MG/ML 5 ML VIAL IV PRN (21:33)
[2017-04-13] MEDS: Heparin DRIP 25,000 UNITS(*) 25,000 UNITS/500 ML BAG IVPB SCH ×2 (00:11→12:00)
[2017-04-13] MEDS: Morphine INJ* 4 MG/ML 1 ML CARPUJECT IV PRN ×4 (00:35→18:05)
[2017-04-13 01:25] LABS: Hematocrit 41 % (42-52); Hemoglobin 12.9 g/dl (14.0-18.0); Mean Corpuscular HGB Conc 32 g/dl (31-36); Mean Corpuscular Hemoglobin 25 pg (27-31); Mean Corpuscular Volume 80 fL (80-94); Mean Platelet Volume 9 um3 (7.4-10.4); Red Blood Count 5.09 10^6/ul (4.0-5.4); Red Cell Distribution Width 15 % (10.5-15); White Blood Count 8.1 10^3/ul (3.5-10.8)
[2017-04-13] MEDS: NS 0.9% 1000 ML* 1,000 ML IV SCH ×2 (03:30→10:48)
[2017-04-13] MEDS: Omeprazole CAP* 20 MG PO SCH (05:52)
[2017-04-13] MEDS: Heparin VIAL(*) 5000 UNITS/ML VIAL (FIVE THOUSAND) IV SCH ×2 (07:26→13:41)
[2017-04-13 08:55] LABS: Hematocrit 40 % (42-52); Hemoglobin 12.9 g/dl (14.0-18.0); Mean Corpuscular HGB Conc 32 g/dl (31-36); Mean Corpuscular Hemoglobin 26 pg (27-31); Mean Corpuscular Volume 79 fL (80-94); Mean Platelet Volume 8 um3 (7.4-10.4); Red Blood Count 5.06 10^6/ul (4.0-5.4); Red Cell Distribution Width 16 % (10.5-15); White Blood Count 9.1 10^3/ul (3.5-10.8)
--- NOTE | 2017-04-13 09:08 | PN ---
Subjective Date of Service: 04/13/17 Interval History: HOSPITALIST PROGRESS NOTE Patient seen and examined at bedside. He continues to c/o pleuritic left sided chest pain and dyspnea. Becomes very tachycardic with exertion. HR was 150 while walking to bathroom yesterday. Family History: Unchanged from Admission Social History: Unchanged from Admission Past Medical History: Unchanged from Admission Objective Active Medications: Acetaminophen (Tylenol Tab*) 650 mg PO Q6H PRN PRN Reason: FEVER/PAIN Last Admin: 04/12/17 09:25 Dose: 650 mg Hydrocodone Bitart/Acetaminophen ([place] 5-325 Tab*) 1 tab PO Q4H PRN PRN Reason: PAIN Docusate Sodium (Colace Cap*) 200 mg PO BID [facility] Last Admin: 04/12/17 20:11 Dose: 200 mg Heparin Sodium (Porcine) (Heparin Vial(*)) 0 units IV .PER PROTOCOL RADHA PRN Reason: Protocol Last Admin: 04/13/17 07:26 Dose: 9,800 units Sodium Chloride (Ns 0.9% 1000 Ml*) 1,000 mls @ 150 mls/hr IV PER RATE [facility] Last Admin: 04/13/17 03:30 Dose: 150 mls/hr Heparin Sodium/Dextrose (Heparin Drip 25,000 Units(*)) 25,000 units in 500 mls @ 0 mls/hr IVPB .PER RATE [facility]; Per Protocol PRN Reason: Protocol Last Admin: 04/13/17 00:11 Dose: 50 mls/hr Melatonin (Melatonin (Nf)) 3 mg PO BEDTIME PRN; Protocol PRN Reason: Sleep Metoprolol Tartrate (Lopressor Iv*) 5 mg IV Q6H PRN PRN Reason: systolic > 160 Last Admin: 04/12/17 21:33 Dose: 5 mg Morphine Sulfate (Morphine Inj (Syringe)*) 4 mg IV Q4H PRN PRN Reason: PAIN Last Admin: 04/13/17 05:51 Dose: 4 mg Omeprazole (Prilosec Cap*) 20 mg PO DAILY@0600 [facility] Last Admin: 04/13/17 05:52 Dose: 20 mg Ondansetron HCl (Zofran Inj*) 4 mg IV Q6H PRN PRN Reason: NAUSEA Vital Signs 04/13/17 04/13/17 04/13/17 06:51 07:07 08:00 Temperature 98.8 F Pulse Rate 92 Respiratory 18 20 18 Rate Blood Pressure 150/83 (mmHg) O2 Sat by Pulse 95 Oximetry Oxygen Devices in Use Now: None Appearance: Super morbid obese young male sitting up in bed in NAD. Eyes: No Scleral Icterus Ears/Nose/Mouth/Throat: Mucous Membranes Moist Neck: Trachea Midline Respiratory: Symmetrical Chest Expansion and Respiratory Effort, Clear to Auscultation Cardiovascular: RRR - Normal S1 and S2 Neurological: Alert and Oriented x 3, NL Muscle Strength and Tone Nutrition: Taking PO's Result Diagrams: 04/13/17 08:37 04/13/17 08:37 Assess/Plan/Problems-Billing Assessment: Mr. Bellamy is a 31yo M with PMH of polycycstic kidney disease, CKD stage 4, super morbid obesity with BMI 64, HTN, migraines, who presented to ED with c/o left flank pain, pleuritic retrosternal CP and dyspnea, found to have a minimally elevated troponin and positive d-Dimer, suggestive of PE. - Patient Problems (1) Chest pain Comment: - Patient has a Well's score of 4.5, but unable to have CTA chest due to renal function and he exceeds V/Q scan weight limits. - LE doppler was negative for DVT. - Will check echocardiogram looking for signs of RV strain. - Due to his weight, we have not been able to obtain a steady PTT level with heparin drip. D/w Hematology - recommended Argatroban drip and bridge with Warfarin. - Hematology will consult. - Patient understands we may not be able to r/o PE, but with his risk factors, I believe he warrants treatment. (2) Flank pain Comment: - Similar to prior episodes he had in the past, as per patient. - Renal US reviewed. - Continue pain management. (3) DVT prophylaxis Comment: - Argatroban drip. (4) Full code status Status and Disposition: Change to inpatient.
[2017-04-13] MEDS: Docusate CAP* 100 MG PO SCH ×2 (09:27→21:32)
[2017-04-13 09:52] LABS: BUN/Creatinine Ratio 11.1 (8-20); Calcium 8.9 mg/dL (8.6-10.3); EGFR African American 28.4 (>60); EGFR Non-African American 22.1 (>60); Potassium 4.6 mmol/L (3.5-5.0)
[2017-04-13] MEDS ORDERED: Perflutren Lipid Microsphere* 3 ML VIAL ONE (14:24)
[2017-04-13 14:49] LABS: Urine Creatinine/24HR 2563.75 mg/24Hr (600-1800)
--- NOTE | 2017-04-13 15:46 | ECHO ---
Patient: JAVI MATTHEWS [facility] Rec#: [id number] : 1985 Date: 04/13/2017 Age: 31y Height: 193.04 cm / 76.0 in Weight: 199.58 kg / 439.9 lbs Sex: M BSA: 3.1 Room#: 446 Admit Date#: 04/12/2017 Type: Inpatient Referring: Abelardo Ibanez MD Reading: Fallon Moran MD Straddle Bug Operator: Jo Moe RDCS,RDMS CC: Eddie Villagomez MD Transthoracic Echocardiogram Indication: CP BP: 151/103 HR: 94 Rhythm: NSR Findings History: Polycystic kidney disease, HTN, murmur, morbid obesity Technical Comments: The study is technically limited due to poor acoustic windows. Left Ventricle: The left ventricular chamber size is normal. Mild to moderate concentric left ventricular hypertrophy is observed. The estimated ejection fraction is 55-60%. Normal left ventricular diastolic filling is observed. Left Atrium: The left atrium is slightly dilated. Right Ventricle: The right ventricular chamber size and systolic function are within normal limits. Right Atrium: The right atrium is slightly dilated. Aortic Valve: There is no evidence of aortic valve thickening. There is trace to mild aortic regurgitation. There is no evidence of aortic stenosis. Mitral Valve: The mitral valve leaflets do not appear thickened. There is no evidence of mitral regurgitation. There is no evidence of mitral stenosis. Tricuspid Valve: The tricuspid valve leaflets are normal. There is no evidence of tricuspid valve regurgitation. Unable to estimate the right ventricular systolic pressure. Pulmonic Valve: The pulmonic valve structure is not well visualized. Pericardium: There is no significant pericardial effusion. Aorta: The ascending aorta is not well visualized. There is no dilatation of the aortic arch. The aortic root is normal in size. Pulmonary Artery: The main pulmonary artery is not well visualized. Venous: The inferior vena cava is not visualized. Contrast: Definity was used to optimize study. A total of 3 ml was used Summary: There was not any prior study for comparison. Conclusions The left ventricular chamber size is normal. Mild to moderate concentric left ventricular hypertrophy is observed. The estimated ejection fraction is 55-60%. Normal left ventricular diastolic filling is observed. There is trace to mild aortic regurgitation. Measurements Name Value Normal Range RVIDd (AP) 2D 1.5 cm (0.9 - 2.6) RVDdMajor (2D) 3.5 cm (2.2 - 4.4) RAd ISD 4CH 5.3 cm (3.4 - 4.9) RA (A4C)W 4.2 cm (2.9 - 4.6) IVSd (2D) 1.6 cm (0.6 - 1) LVPWd (2D) 1.3 cm (0.6 - 1) LVIDd (2D) 4.7 cm (3.6 - 5.4) LVIDs (2D) 3.1 cm - LV FS (2D) 33 % (25 - 45) Aortic Annulus 2.3 cm (1.4 - 2.6) Ao root diameter (2D) 3.3 cm (2.1 - 3.5) Aortic arch 2.4 cm (1.8 - 3.4) LA dimension (AP) 2D 4.1 cm (2.3 - 3.8) LAd ISD 4CH 5.7 cm (2.9 - 5.3) LA ISD 4CH W 3.5 cm (2.5 - 4.5) Name Value Normal Range LA ESV SP 4CH (A/L) 55.55 ml - LA ESV SP 2CH (A/L) 79.83 ml - LA ESV BP (A/L) 70.19 ml - LA ESV BP (A/L) index 23 ml/m2 - LA ESV SP 4CH (MOD) 51.8 ml - LA ESV SP 2CH (MOD) 77.06 ml - Name Value Normal Range MV E-wave Vmax 0.8 m/sec - MV deceleration time 176 msec - MV A-wave Vmax 0.4 m/sec - MV E:A ratio 2 ratio - LV septal e' Vmax 0.11 m/sec - LV lateral e' Vmax 0.1 m/sec - LV E:e' septal ratio 7.3 ratio - LV E:e' lateral ratio 8 ratio - Name Value Normal Range AV Vmax 1.6 m/sec - AV VTI 25.8 cm - AV peak gradient 10 mmHg - AV mean gradient 5 mmHg - LVOT Vmax 1.1 m/sec - LVOT VTI 18.4 cm - LVOT peak gradient 5 mmHg - LVOT mean gradient 2.6 mmHg - TIFFANY Vmax 1 m/sec - Name Value Normal Range MV Vmax 1.1 m/sec - MV VTI 37 cm - MV peak gradient 5 mmHg - MV mean gradient 2 mmHg - MV PHT 98 msec - MVA (PHT) 2.2 cm2 - Name Value Normal Range RAP 8 mmHg - Name Value Normal Range PV Vmax 0.9 m/sec - PV peak gradient 3.2 mmHg -
[2017-04-13] MEDS ORDERED: Argatroban(*) 250 MG in NS 0.9% 250 ML* 247.5 ML IV SCH (16:15)
--- NOTE | 2017-04-13 16:40 | CONSULT ---
Consultation - Reason for Consultation Reason for Consultation: Presumed PE in obese pt. with CRD. Ordering Provider: Tali Sheffield Chief Complaint: SOB and chest pain. 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 Wednesday 04/11 he developed increasing SOB and new chest pain. ultimately [facility]. In the ER he had a markedly elevate D.dimer and d/t renal disease he was admitted with plan for VQ scan in AM. During work-up he had an isolated elevated troponin without EKG changes. Since admission he has been managed on heparin gtt, however d/t safety constraints with pump rate and pt.'s wt. there has been concern that heparin was not the safest choice. At this time Mr. Bellamy says that he continues to feel very poorly with no improvement since admission. He remains SOB with exertion and has an "elephant on his chest" worse with deep breaths. He denies any radiation of pain. He says the morphine helps some. He has not recently traveled and denies any recent infections. He tells me in the past he was on Coumadin per a renal doctor in [place] who is no longer practicing, "Because of my kidney disease." He denies any hx. of clots. Work-up thus far includes venous doppler which was negative. Allergies/Medications Medication: Current inpatient meds: Acetaminophen (Tylenol Tab*) 650 mg PO Q6H PRN PRN Reason: FEVER/PAIN Last Admin: 04/12/17 09:25 Dose: 650 mg Hydrocodone Bitart/Acetaminophen ([place] 5-325 Tab*) 1 tab PO Q4H PRN PRN Reason: PAIN Docusate Sodium (Colace Cap*) 200 mg PO BID [facility] Last Admin: 04/13/17 09:27 Dose: 200 mg Argatroban 250 mg/ Sodium (Chloride) 250 mls @ 28.73 mls/hr IV .Q24H [facility] PRN Reason: 2 MCG/KG/MIN Melatonin (Melatonin (Nf)) 3 mg PO BEDTIME PRN; Protocol PRN Reason: Sleep Metoprolol Tartrate (Lopressor Iv*) 5 mg IV Q6H PRN PRN Reason: systolic > 160 Last Admin: 04/12/17 21:33 Dose: 5 mg Morphine Sulfate (Morphine Inj (Syringe)*) 4 mg IV Q4H PRN PRN Reason: PAIN Last Admin: 04/13/17 11:01 Dose: 4 mg Omeprazole (Prilosec Cap*) 20 mg PO DAILY@0600 [facility] Last Admin: 04/13/17 05:52 Dose: 20 mg Ondansetron HCl (Zofran Inj*) 4 mg IV Q6H PRN PRN Reason: NAUSEA Pharmacy Profile Note (Coumadin Per Pharmacy*) 1 note FOLLOW UP 1700 [facility] Home meds: Acetaminophen [Acetaminophen Extra Stren] 1,000 mg PO Q6HR PRN 04/13/17 [ History Confirmed 04/13/17] Diphenhydramine HCl [Benadryl Allergy 25 MG TAB] 25 mg PO Q4HR 04/13/17 [ History Confirmed 04/13/17] Allergies/Adverse Reactions: Allergies Allergy/AdvReac Type Severity Reaction Status Date / Time Penicillins Allergy Severe Anaphylatic Verified 04/11/17 22:21 Shock Hydromorphone [From Dilaudid] Allergy Intermediate Hives Verified 04/11/17 22:21 History - Past Medical History Hx Arthritis: No Hx Blood Dyscrasias: No Hx Cancer: No Hx Cardiac Disorders: No Hx Circulatory Problems: No Hx Diabetes: No Hx Hypercholesterolemia: No Hx Hypertension: Yes Hx Menstrual Problems: No Hx Musculoskeletal Deformity: No Surgical History: Yes Surgery Procedure, Year, and Place: left orchiectomy Hx Endocrine Problem: No Hx Bone Density Problem: No Other History: migraines, PCKD, CRD, morbid obesity - Family History Hx Family Cancer: Yes - lung cancer, leukemia in grandparents Hx Family Cerebrovascular Accident: No Other Family History: No hx. of clots or bleeding - Social History Hx Tobacco Use: No Other Social History: No recent travel. No recent infections. Review of Systems - Review of Systems Dermatology: Positive: Normal HEENT: Positive: Normal Eyes: Positive: Normal Thyroid: Positive: Normal Pulmonary: Positive: Shortness of Breath Cardiology: Positive: Chest Pain, Shortness of Breath Gastroenterology: Positive: Normal Genitourinary - Male: Other - flank pain Neurology: Positive: Migraines Psychiatry: Positive: Normal Physical Exam - Physical Exam Physical Examination: Vital Signs Temp Pulse Resp BP Pulse Ox 98.3 F 96 18 150/95 98 04/13/17 15:45 04/13/17 15:45 04/13/17 15:45 04/13/17 15:45 04/13/17 15:45 A&Ox3, EOMI, neuro grossly non-focal HRR, SR on tele with occ. ST Resp. rate even and non-labored, LS clear with mildly dim. right base Large, obese Results - Lab Results Lab Results: Laboratory Results - last 24 hr 04/12/17 04/12/17 04/13/17 14:00 21:32 00:48 WBC 8.1 RBC 5.09 Hgb 12.9 L Hct 41 L MCV 80 MCH 25 L MCHC 32 RDW 15 Plt Count 231 MPV 9 Neut % (Auto) 69.4 Lymph % (Auto) 22.2 L [place] % (Auto) 5.7 Eos % (Auto) 1.7 Baso % (Auto) 1.0 Absolute Neuts (auto) 5.6 Absolute Lymphs (auto) 1.8 Absolute Monos (auto) 0.5 Absolute Eos (auto) 0.1 Absolute Basos (auto) 0.1 Absolute Nucleated RBC 0 Nucleated RBC % 0 APTT 61.3 H Sodium Potassium Chloride Carbon Dioxide Anion Gap BUN Creatinine Est GFR ( Amer) Est GFR (Non-Af Amer) BUN/Creatinine Ratio Glucose Calcium Ur Random Creatinine 73.25 U Random Total Protein 69 Urine Collection Time 24 Urine Total Volume 3500 Ur Creatinine 24 Hour 2563.75 H Ur Total Protein 24 Hr 2415 H 04/13/17 04/13/17 04/13/17 05:30 08:37 08:37 WBC 9.1 RBC 5.06 Hgb 12.9 L Hct 40 L MCV 79 L MCH 26 L MCHC 32 RDW 16 H Plt Count 243 MPV 8 Neut % (Auto) 70.2 Lymph % (Auto) 21.4 L [place] % (Auto) 5.7 Eos % (Auto) 1.5 Baso % (Auto) 1.2 Absolute Neuts (auto) 6.4 Absolute Lymphs (auto) 1.9 Absolute Monos (auto) 0.5 Absolute Eos (auto) 0.1 Absolute Basos (auto) 0.1 Absolute Nucleated RBC 0 Nucleated RBC % 0 APTT 35.5 Sodium 137 Potassium 4.6 Chloride 109 Carbon Dioxide 20 L Anion Gap 8 BUN 37 H Creatinine 3.32 H Est GFR ( Amer) 28.4 Est GFR (Non-Af Amer) 22.1 BUN/Creatinine Ratio 11.1 Glucose 123 H Calcium 8.9 Ur Random Creatinine U Random Total Protein Urine Collection Time Urine Total Volume Ur Creatinine 24 Hour Ur Total Protein 24 Hr 04/13/17 04/13/17 08:37 12:34 WBC RBC Hgb Hct MCV MCH MCHC RDW Plt Count MPV Neut % (Auto) Lymph % (Auto) [place] % (Auto) Eos % (Auto) Baso % (Auto) Absolute Neuts (auto) Absolute Lymphs (auto) Absolute Monos (auto) Absolute Eos (auto) Absolute Basos (auto) Absolute Nucleated RBC Nucleated RBC % APTT 168.9 H* 34.9 Sodium Potassium Chloride Carbon Dioxide Anion Gap BUN Creatinine Est GFR ( Amer) Est GFR (Non-Af Amer) BUN/Creatinine Ratio Glucose Calcium Ur Random Creatinine U Random Total Protein Urine Collection Time Urine Total Volume Ur Creatinine 24 Hour Ur Total Protein 24 Hr Assessment and Plan Impression: 31 yo morbidly obese male with long standing PCKD and CRD presenting with SOB and chest pain. Work-up revealed an elevated d.dimer, however further imaging has not been able to be completed d/t the patient's renal disease and body habitus. As such he has been started on empirical treatment as with his obesity he is certainly high risk and benefits outweigh bleeding risk. Agree with dx. PE. In terms of anti-coagulation if it is felt heparin is not safe for administration d/t contrasts with dosing then direct thrombin inhibition would be the next best step as you transition him to oral anti-coags. Plan: 1. Presumed PE: check PTT and as long as <2.5x ULN recommend starting direct thrombin inhibitor, Argatroban @ 2 mcg/kg/min and cont. per pharmacy protocol; concurrently start coumadin this evening, check daily INR. Will likely need life long anti-coagulation. Unlikely to be a coagulation disorder, however we will cont. to follow. 2. Renal disease: per hospitalist. Thank you for requesting this consult and we will cont. to follow his coagulation.
[2017-04-13] MEDS ORDERED: Warfarin TAB(*) 5 MG PO ONE (17:00)
[2017-04-14] MEDS: Argatroban(*) 250 MG in NS 0.9% 250 ML* 247.5 ML IV SCH ×3 (03:03→22:31)
[2017-04-14] MEDS: Morphine INJ* 4 MG/ML 1 ML CARPUJECT IV PRN ×3 (03:31→13:46)
[2017-04-14 05:25] LABS: Hematocrit 39 % (42-52); Hemoglobin 12.7 g/dl (14.0-18.0); Mean Corpuscular HGB Conc 32 g/dl (31-36); Mean Corpuscular Hemoglobin 26 pg (27-31); Mean Corpuscular Volume 80 fL (80-94); Mean Platelet Volume 8 um3 (7.4-10.4); Red Blood Count 4.91 10^6/ul (4.0-5.4); Red Cell Distribution Width 16 % (10.5-15); White Blood Count 8.8 10^3/ul (3.5-10.8)
[2017-04-14 05:37] LABS: BUN/Creatinine Ratio 10.2 (8-20); Calcium 8.7 mg/dL (8.6-10.3); EGFR African American 29.4 (>60); EGFR Non-African American 22.8 (>60); Potassium 4.6 mmol/L (3.5-5.0)
[2017-04-14] MEDS: Omeprazole CAP* 20 MG PO SCH (05:47)
--- NOTE | 2017-04-14 07:20 | PN ---
Progress Note - Progress Note Date of Service: 04/14/17 SOAP: Subjective: []No change in chest pain. Describes chest pain for 1 day prior to admission. Pain with deep breath, taking shallow breaths. No transient risk factors for PE , not sedentary. Pain is not extensional. No swelling or pain in legs. On admission Ddimer of 650, Trop 0.06, US LE negative. Echo did not visualize right heart. No pulmonary imaging. Acetaminophen (Tylenol Tab*) 650 mg PO Q6H PRN PRN Reason: FEVER/PAIN Last Admin: 04/12/17 09:25 Dose: 650 mg Hydrocodone Bitart/Acetaminophen ([place] 5-325 Tab*) 1 tab PO Q4H PRN PRN Reason: PAIN Docusate Sodium (Colace Cap*) 200 mg PO BID [facility] Last Admin: 04/13/17 21:32 Dose: 200 mg Argatroban 250 mg/ Sodium (Chloride) 250 mls @ 28.73 mls/hr IV Q8H [facility] PRN Reason: 2 MCG/KG/MIN Last Admin: 04/14/17 03:03 Dose: 28.73 mls/hr Influenza Virus Vaccine (Fluarix *Quad* *) 0.5 ml IM .ONCE ONE Stop: 04/14/17 09:01 Melatonin (Melatonin (Nf)) 3 mg PO BEDTIME PRN; Protocol PRN Reason: Sleep Metoprolol Tartrate (Lopressor Iv*) 5 mg IV Q6H PRN PRN Reason: systolic > 160 Last Admin: 04/12/17 21:33 Dose: 5 mg Morphine Sulfate (Morphine Inj (Syringe)*) 4 mg IV Q4H PRN PRN Reason: PAIN Last Admin: 04/14/17 03:31 Dose: 4 mg Omeprazole (Prilosec Cap*) 20 mg PO DAILY@0600 [facility] Last Admin: 04/14/17 05:47 Dose: 20 mg Ondansetron HCl (Zofran Inj*) 4 mg IV Q6H PRN PRN Reason: NAUSEA Pharmacy Profile Note (Coumadin Per Pharmacy*) 1 note FOLLOW UP 1700 [facility] PRN Reason: Protocol Last Admin: 04/13/17 18:06 Dose: 1 note Objective: [] Vital Signs Temp Pulse Resp BP Pulse Ox 97.8 F 104 20 159/97 98 04/14/17 03:31 04/14/17 03:31 04/14/17 04:31 04/14/17 03:31 04/14/17 03:31 HEENT - neg CTA decreased BS distant heart, could not hear the murmur obese, no liver edge no CHICA Assessment: []31 year old with chest pain and elevated Ddimer. Agree could be PE and course of anticoagulation is reasonable. Ddx also includes cardiac pain, chest wall pain, pulmonary disease. Ddimer is elevated in obesity. Plan: []1. He is therapeutic on Argatroban at 2 mcg/kg. INR daily and hold Argatroban when INR > 4.0, then re-check in 4 hrs. If subtheraputic re-start and repeat in 24 hrs. Once INR > 2.0 can continue Coumadin alone. 2. Continue evaluation for alternative source. Check non contrast CT chest for pneumonia or wedge infarct. Consider EST. 3. Will plan 3 months anticoagulation and follow Ddimer. If remains elevated on Coumadin then likely second to obesity and will d/c anticoagulation.
[2017-04-14] MEDS ORDERED: Influenza VAC *QUAD* 2017-18* 0.5 ML SYRINGE IM ONE (09:00)
[2017-04-14] MEDS: Docusate CAP* 100 MG PO SCH ×2 (09:17→22:43)
--- NOTE | 2017-04-14 10:03 | RAD ---
INDICATION: Chest pain and elevated d-dimer, troponins and CKD COMPARISON: None TECHNIQUE: Axial source images of the chest were acquired without intravenous contrast from just above the lung apices to the base of the diaphragm. Coronal and sagittal reconstructed images were acquired. FINDINGS: There are no focal infiltrates or effusions. There are no pulmonary parenchymal masses. The heart is normal in size. There is no evidence of pericardial effusion. There is no evidence of aortic aneurysm or dissection. There is no readily apparent mediastinal, hilar, or axillary lymphadenopathy. May minimally increased hyperattenuating material in the anterior mediastinum is most consistent with thymic tissue. Mild degenerative changes of the thoracic spine includes loss of intervertebral disc height. The visualized kidneys are largely replaced with innumerable cysts. IMPRESSION: 1. No acute thoracic abnormality identified within the limitations of noncontrast CT of the chest. 2. Residual thymic tissue is noted of uncertain clinical significance. 3. Findings are consistent with polycystic kidney disease.
[2017-04-14] MEDS ORDERED: oxyCODONE TAB* 5 MG TAB PO PRN (13:31)
--- NOTE | 2017-04-14 13:36 | PN ---
Subjective Date of Service: 04/14/17 Interval History: C/O midsternal chest pain, requested PRN morphine from the nurse. He had tongue pain earlier today but it was largely relieved by ice. Family History: Unchanged from Admission Social History: Unchanged from Admission Past Medical History: Unchanged from Admission Objective Active Medications: Acetaminophen (Tylenol Tab*) 650 mg PO Q6H PRN PRN Reason: FEVER/PAIN Last Admin: 04/12/17 09:25 Dose: 650 mg Hydrocodone Bitart/Acetaminophen ([place] 5-325 Tab*) 1 tab PO Q4H PRN PRN Reason: PAIN Docusate Sodium (Colace Cap*) 200 mg PO BID [facility] Last Admin: 04/14/17 09:17 Dose: 200 mg Argatroban 250 mg/ Sodium (Chloride) 250 mls @ 28.73 mls/hr IV Q8H [facility] PRN Reason: 2 MCG/KG/MIN Last Admin: 04/14/17 13:11 Dose: 28.73 mls/hr Melatonin (Melatonin (Nf)) 3 mg PO BEDTIME PRN; Protocol PRN Reason: Sleep Metoprolol Tartrate (Lopressor Iv*) 5 mg IV Q6H PRN PRN Reason: systolic > 160 Last Admin: 04/12/17 21:33 Dose: 5 mg Morphine Sulfate (Morphine Inj (Syringe)*) 4 mg IV Q4H PRN PRN Reason: PAIN Last Admin: 04/14/17 08:43 Dose: 4 mg Omeprazole (Prilosec Cap*) 20 mg PO DAILY@0600 [facility] Last Admin: 04/14/17 05:47 Dose: 20 mg Ondansetron HCl (Zofran Inj*) 4 mg IV Q6H PRN PRN Reason: NAUSEA Pharmacy Profile Note (Coumadin Per Pharmacy*) 1 note FOLLOW UP 1700 [facility] PRN Reason: Protocol Last Admin: 04/13/17 18:06 Dose: 1 note Vital Signs 04/13/17 04/13/17 04/13/17 15:45 18:05 19:05 Temperature 98.3 F Pulse Rate 96 Respiratory 18 18 14 Rate Blood Pressure 150/95 (mmHg) O2 Sat by Pulse 98 Oximetry 04/13/17 04/13/17 04/13/17 19:24 20:00 23:33 Temperature 98.1 F 98.0 F Pulse Rate 87 100 Respiratory 14 14 20 Rate Blood Pressure 156/94 190/102 (mmHg) O2 Sat by Pulse 97 99 Oximetry 04/14/17 04/14/17 04/14/17 03:31 04:31 07:31 Temperature 97.8 F 97.6 F Pulse Rate 104 87 Respiratory 20 20 Rate Blood Pressure 159/97 (mmHg) O2 Sat by Pulse 98 98 Oximetry 04/14/17 04/14/17 04/14/17 07:38 08:17 08:43 Temperature Pulse Rate Respiratory 20 18 Rate Blood Pressure 159/92 (mmHg) O2 Sat by Pulse Oximetry 04/14/17 09:43 Temperature Pulse Rate Respiratory 18 Rate Blood Pressure (mmHg) O2 Sat by Pulse Oximetry Oxygen Devices in Use Now: None Appearance: Alert, supine in bed. In good spirits. Looks comfortable. Eyes: No Scleral Icterus Ears/Nose/Mouth/Throat: Clear Oropharnyx, Mucous Membranes Moist Neck: NL Appearance and Movements; NL JVP, No Thyroid Enlargement, Masses Respiratory: Symmetrical Chest Expansion and Respiratory Effort, Clear to Auscultation, Clear to Percussion Cardiovascular: NL Sounds; No Murmurs; No JVD, RRR, No Edema, - Extremities: No Edema, No Clubbing, Cyanosis, - Skin: No Rash or Ulcers, No Nodules or Sclerosis, - Neurological: Alert and Oriented x 3, NL Sensation Result Diagrams: 04/14/17 04:57 04/14/17 04:57 Additional Lab and Data: Lab Results 04/11/17 04/11/17 04/11/17 Range/Units 23:00 23:00 23:00 WBC (3.5-10.8) 10^3/ul RBC (4.0-5.4) 10^6/ul Hgb (14.0-18.0) g/dl Hct (42-52) % MCV (80-94) fL MCH (27-31) pg MCHC (31-36) g/dl RDW (10.5-15) % Plt Count (150-450) 10^3/ul MPV (7.4-10.4) um3 Neut % (Auto) (38-83) % Lymph % (Auto) (25-47) % [place] % (Auto) (1-9) % Eos % (Auto) (0-6) % Baso % (Auto) (0-2) % Absolute Neuts (auto) (1.5-7.7) 10^3/ul Absolute Lymphs (auto) (1.0-4.8) 10^3/ul Absolute Monos (auto) (0-0.8) 10^3/ul Absolute Eos (auto) (0-0.6) 10^3/ul Absolute Basos (auto) (0-0.2) 10^3/ul Absolute Nucleated RBC 10^3/ul Nucleated RBC % INR (Anticoag Therapy) 1.00 (0.89-1.11) APTT 31.7 (26.0-36.3) seconds D-Dimer, Quantitative 615 H (Less Than 230) ng/mL Sodium 137 (133-145) mmol/L Potassium 4.5 (3.5-5.0) mmol/L Chloride 109 (101-111) mmol/L Carbon Dioxide 19 L (22-32) mmol/L Anion Gap 9 (2-11) mmol/L BUN 37 H (6-24) mg/dL Creatinine 3.29 H (0.67-1.17) mg/dL Est GFR ( Amer) 28.7 (>60) Est GFR (Non-Af Amer) 22.4 (>60) BUN/Creatinine Ratio 11.2 (8-20) Glucose 102 H (70-100) mg/dL Lactic Acid 1.2 (0.5-2.0) mmol/L Calcium 9.0 (8.6-10.3) mg/dL Magnesium 1.7 L (1.9-2.7) mg/dL Total Bilirubin 0.30 (0.2-1.0) mg/dL AST 15 (13-39) U/L ALT 12 (7-52) U/L Alkaline Phosphatase 81 (34-104) U/L Troponin I 0.06 H* (<0.04) ng/mL C-Reactive Protein 96.63 H (< 5.00) mg/L B-Natriuretic Peptide ( - 100) pg/mL Total Protein 8.4 (6.4-8.9) g/dL Albumin 3.8 (3.2-5.2) g/dL Globulin 4.6 H (2-4) g/dL Albumin/Globulin Ratio 0.8 L (1-3) Lipase 30 (11.0-82.0) U/L TSH 2.03 (0.34-5.60) mcIU/mL 04/11/17 04/11/17 Range/Units 23:00 23:00 WBC 10.8 (3.5-10.8) 10^3/ul RBC 5.38 (4.0-5.4) 10^6/ul Hgb 14.0 (14.0-18.0) g/dl Hct 43 (42-52) % MCV 79 L (80-94) fL MCH 26 L (27-31) pg MCHC 33 (31-36) g/dl RDW 16 H (10.5-15) % Plt Count 272 (150-450) 10^3/ul MPV 8 (7.4-10.4) um3 Neut % (Auto) 71.6 (38-83) % Lymph % (Auto) 19.3 L (25-47) % [place] % (Auto) 6.9 (1-9) % Eos % (Auto) 1.2 (0-6) % Baso % (Auto) 1.0 (0-2) % Absolute Neuts (auto) 7.7 (1.5-7.7) 10^3/ul Absolute Lymphs (auto) 2.1 (1.0-4.8) 10^3/ul Absolute Monos (auto) 0.7 (0-0.8) 10^3/ul Absolute Eos (auto) 0.1 (0-0.6) 10^3/ul Absolute Basos (auto) 0.1 (0-0.2) 10^3/ul Absolute Nucleated RBC 0.01 10^3/ul Nucleated RBC % 0 INR (Anticoag Therapy) (0.89-1.11) APTT (26.0-36.3) seconds D-Dimer, Quantitative (Less Than 230) ng/mL Sodium (133-145) mmol/L Potassium (3.5-5.0) mmol/L Chloride (101-111) mmol/L Carbon Dioxide (22-32) mmol/L Anion Gap (2-11) mmol/L BUN (6-24) mg/dL Creatinine (0.67-1.17) mg/dL Est GFR ( Amer) (>60) Est GFR (Non-Af Amer) (>60) BUN/Creatinine Ratio (8-20) Glucose (70-100) mg/dL Lactic Acid (0.5-2.0) mmol/L Calcium (8.6-10.3) mg/dL Magnesium (1.9-2.7) mg/dL Total Bilirubin (0.2-1.0) mg/dL AST (13-39) U/L ALT (7-52) U/L Alkaline Phosphatase (34-104) U/L Troponin I (<0.04) ng/mL C-Reactive Protein (< 5.00) mg/L B-Natriuretic Peptide 22 ( - 100) pg/mL Total Protein (6.4-8.9) g/dL Albumin (3.2-5.2) g/dL Globulin (2-4) g/dL Albumin/Globulin Ratio (1-3) Lipase (11.0-82.0) U/L TSH (0.34-5.60) mcIU/mL Assess/Plan/Problems-Billing Assessment: Mr. Bellamy is a 31yo M with PMH of polycycstic kidney disease, CKD stage 4, super morbid obesity with BMI 64, HTN, migraines, who presented to ED with c/o left flank pain, pleuritic retrosternal CP and dyspnea, found to have a minimally elevated troponin and positive d-Dimer, suggestive of PE. - Patient Problems (1) Chest pain Current Visit: Yes Status: Acute Code(s): R07.9 - CHEST PAIN, UNSPECIFIED SNOMED Code(s): 86789029 Comment: - Patient has a Well's score of 4.5, but unable to have CTA chest due to renal function and he exceeds V/Q scan weight limits. - LE doppler was negative for DVT. - Echocardiogram did not show RV strain. - Due to his weight, we have not been able to obtain a steady PTT level with heparin drip. D/w Hematology - recommended Argatroban drip and bridge with Warfarin. First dose warfarin 4 mg on 04/13. Start warfarin 10 mg daily 04/14. Change to oral oxydocodone PRN pain. (2) Polycystic kidney disease Current Visit: Yes Status: Acute Code(s): Q61.3 - POLYCYSTIC KIDNEY, UNSPECIFIED SNOMED Code(s): 03201907 Comment: Est GFR 22.8 04/14/17. Stable. (3) Morbid obesity Current Visit: Yes Status: Acute Code(s): E66.01 - MORBID (SEVERE) OBESITY DUE TO EXCESS CALORIES SNOMED Code(s): 435210114 Comment: BMI 64.3. Status and Disposition: Change to inpatient.
[2017-04-14] MEDS: Warfarin TAB(*) 10 MG PO SCH (17:01)
[2017-04-14] MEDS: oxyCODONE TAB* 5 MG TAB PO PRN ×2 (17:01→22:16)
[2017-04-14 17:14] LABS: Hematocrit 38 % (42-52); Mean Corpuscular HGB Conc 32 g/dl (31-36); Mean Corpuscular Hemoglobin 25 pg (27-31); Mean Corpuscular Volume 80 fL (80-94); Mean Platelet Volume 8 um3 (7.4-10.4); Red Blood Count 4.76 10^6/ul (4.0-5.4); Red Cell Distribution Width 16 % (10.5-15); White Blood Count 7.2 10^3/ul (3.5-10.8)
[2017-04-15] MEDS: Omeprazole CAP* 20 MG PO SCH (05:29)
[2017-04-15] MEDS: oxyCODONE TAB* 5 MG TAB PO PRN ×4 (05:29→19:49)
[2017-04-15] MEDS: Docusate CAP* 100 MG PO SCH ×2 (07:47→19:50)
[2017-04-15] MEDS: Argatroban(*) 250 MG in NS 0.9% 250 ML* 247.5 ML IV SCH ×2 (07:48→17:25)
[2017-04-15] MEDS: Ondansetron ODT TAB* 4 MG SL PRN ×2 (13:25→19:50)
[2017-04-15] MEDS: Warfarin TAB(*) 10 MG PO SCH (17:25)
--- NOTE | 2017-04-15 17:29 | PN ---
Subjective Date of Service: 04/15/17 Interval History: C/O bumps on his head that hurt and bleed. No chest pain, SOB, cough. Family History: Unchanged from Admission Social History: Unchanged from Admission Past Medical History: Unchanged from Admission Objective Active Medications: Acetaminophen (Tylenol Tab*) 650 mg PO Q6H PRN PRN Reason: FEVER/PAIN Last Admin: 04/12/17 09:25 Dose: 650 mg Docusate Sodium (Colace Cap*) 200 mg PO BID [facility] Last Admin: 04/15/17 07:47 Dose: 200 mg Heparin Sodium (Porcine) (Heparin Flush Picc/Ml/Cvc(*)) 1 - 3 ml FLUSH 0600, 1800 [facility] PRN Reason: Protocol Argatroban 250 mg/ Sodium (Chloride) 250 mls @ 28.73 mls/hr IV Q8HR [facility] PRN Reason: 2 MCG/KG/MIN Last Admin: 04/15/17 07:48 Dose: 28.73 mls/hr Metoprolol Tartrate (Lopressor Iv*) 5 mg IV Q6H PRN PRN Reason: systolic > 160 Last Admin: 04/12/17 21:33 Dose: 5 mg Omeprazole (Prilosec Cap*) 20 mg PO DAILY@0600 [facility] Last Admin: 04/15/17 05:29 Dose: 20 mg Ondansetron HCl (Zofran Odt Tab*) 4 mg SL Q6H PRN PRN Reason: NAUSEA/VOMITING Last Admin: 04/15/17 13:25 Dose: 4 mg Oxycodone HCl (Roxycodone Tab*) 5 mg PO Q4H PRN PRN Reason: PAIN - MODERATE Oxycodone HCl (Roxycodone Tab*) 10 mg PO Q4H PRN PRN Reason: PAIN - SEVERE Last Admin: 04/15/17 15:31 Dose: 10 mg Warfarin Sodium (Coumadin Tab(*)) 10 mg PO DAILY@1700 [facility] PRN Reason: Protocol Last Admin: 04/14/17 17:01 Dose: 10 mg Vital Signs 04/14/17 04/14/17 04/14/17 19:01 20:00 22:16 Temperature Pulse Rate Respiratory 18 18 16 Rate Blood Pressure (mmHg) O2 Sat by Pulse Oximetry 04/14/17 04/14/17 04/14/17 23:29 23:41 23:58 Temperature 98.5 F 98.5 F Pulse Rate 87 96 92 Respiratory 16 16 Rate Blood Pressure 194/71 162/78 (mmHg) O2 Sat by Pulse 96 98 Oximetry 04/15/17 04/15/17 04/15/17 00:16 03:39 05:29 Temperature 98.5 F Pulse Rate 85 Respiratory 16 16 16 Rate Blood Pressure 156/93 (mmHg) O2 Sat by Pulse 98 Oximetry 04/15/17 04/15/17 04/15/17 07:29 07:38 07:56 Temperature 99.2 F Pulse Rate 103 Respiratory 16 20 16 Rate Blood Pressure 172/92 (mmHg) O2 Sat by Pulse 98 Oximetry 04/15/17 04/15/17 04/15/17 09:19 09:23 11:10 Temperature 98.5 F Pulse Rate 98 Respiratory 18 20 Rate Blood Pressure 171/89 (mmHg) O2 Sat by Pulse 98 97 Oximetry 04/15/17 04/15/17 04/15/17 11:23 15:31 15:39 Temperature 98.5 F Pulse Rate 96 Respiratory 18 18 16 Rate Blood Pressure 148/88 (mmHg) O2 Sat by Pulse 97 Oximetry Oxygen Devices in Use Now: None Appearance: Alert, supine in bed. In good spirits. Looks comfortable. Skin: No Nodules or Sclerosis, - - 1-2 mm macules on edge of scalp. No papules on scalp, no bleeding. Neurological: Alert and Oriented x 3, NL Sensation Result Diagrams: 04/14/17 16:38 04/14/17 04:57 Additional Lab and Data: Lab Results 04/11/17 04/11/17 04/11/17 Range/Units 23:00 23:00 23:00 WBC (3.5-10.8) 10^3/ul RBC (4.0-5.4) 10^6/ul Hgb (14.0-18.0) g/dl Hct (42-52) % MCV (80-94) fL MCH (27-31) pg MCHC (31-36) g/dl RDW (10.5-15) % Plt Count (150-450) 10^3/ul MPV (7.4-10.4) um3 Neut % (Auto) (38-83) % Lymph % (Auto) (25-47) % [place] % (Auto) (1-9) % Eos % (Auto) (0-6) % Baso % (Auto) (0-2) % Absolute Neuts (auto) (1.5-7.7) 10^3/ul Absolute Lymphs (auto) (1.0-4.8) 10^3/ul Absolute Monos (auto) (0-0.8) 10^3/ul Absolute Eos (auto) (0-0.6) 10^3/ul Absolute Basos (auto) (0-0.2) 10^3/ul Absolute Nucleated RBC 10^3/ul Nucleated RBC % INR (Anticoag Therapy) 1.00 (0.89-1.11) APTT 31.7 (26.0-36.3) seconds D-Dimer, Quantitative 615 H (Less Than 230) ng/mL Sodium 137 (133-145) mmol/L Potassium 4.5 (3.5-5.0) mmol/L Chloride 109 (101-111) mmol/L Carbon Dioxide 19 L (22-32) mmol/L Anion Gap 9 (2-11) mmol/L BUN 37 H (6-24) mg/dL Creatinine 3.29 H (0.67-1.17) mg/dL Est GFR ( Amer) 28.7 (>60) Est GFR (Non-Af Amer) 22.4 (>60) BUN/Creatinine Ratio 11.2 (8-20) Glucose 102 H (70-100) mg/dL Lactic Acid 1.2 (0.5-2.0) mmol/L Calcium 9.0 (8.6-10.3) mg/dL Magnesium 1.7 L (1.9-2.7) mg/dL Total Bilirubin 0.30 (0.2-1.0) mg/dL AST 15 (13-39) U/L ALT 12 (7-52) U/L Alkaline Phosphatase 81 (34-104) U/L Troponin I 0.06 H* (<0.04) ng/mL C-Reactive Protein 96.63 H (< 5.00) mg/L B-Natriuretic Peptide ( - 100) pg/mL Total Protein 8.4 (6.4-8.9) g/dL Albumin 3.8 (3.2-5.2) g/dL Globulin 4.6 H (2-4) g/dL Albumin/Globulin Ratio 0.8 L (1-3) Lipase 30 (11.0-82.0) U/L TSH 2.03 (0.34-5.60) mcIU/mL 04/11/17 04/11/17 Range/Units 23:00 23:00 WBC 10.8 (3.5-10.8) 10^3/ul RBC 5.38 (4.0-5.4) 10^6/ul Hgb 14.0 (14.0-18.0) g/dl Hct 43 (42-52) % MCV 79 L (80-94) fL MCH 26 L (27-31) pg MCHC 33 (31-36) g/dl RDW 16 H (10.5-15) % Plt Count 272 (150-450) 10^3/ul MPV 8 (7.4-10.4) um3 Neut % (Auto) 71.6 (38-83) % Lymph % (Auto) 19.3 L (25-47) % Den[place] % (Auto) 6.9 (1-9) % Eos % (Auto) 1.2 (0-6) % Baso % (Auto) 1.0 (0-2) % Absolute Neuts (auto) 7.7 (1.5-7.7) 10^3/ul Absolute Lymphs (auto) 2.1 (1.0-4.8) 10^3/ul Absolute Monos (auto) 0.7 (0-0.8) 10^3/ul Absolute Eos (auto) 0.1 (0-0.6) 10^3/ul Absolute Basos (auto) 0.1 (0-0.2) 10^3/ul Absolute Nucleated RBC 0.01 10^3/ul Nucleated RBC % 0 INR (Anticoag Therapy) (0.89-1.11) APTT (26.0-36.3) seconds D-Dimer, Quantitative (Less Than 230) ng/mL Sodium (133-145) mmol/L Potassium (3.5-5.0) mmol/L Chloride (101-111) mmol/L Carbon Dioxide (22-32) mmol/L Anion Gap (2-11) mmol/L BUN (6-24) mg/dL Creatinine (0.67-1.17) mg/dL Est GFR ( Amer) (>60) Est GFR (Non-Af Amer) (>60) BUN/Creatinine Ratio (8-20) Glucose (70-100) mg/dL Lactic Acid (0.5-2.0) mmol/L Calcium (8.6-10.3) mg/dL Magnesium (1.9-2.7) mg/dL Total Bilirubin (0.2-1.0) mg/dL AST (13-39) U/L ALT (7-52) U/L Alkaline Phosphatase (34-104) U/L Troponin I (<0.04) ng/mL C-Reactive Protein (< 5.00) mg/L B-Natriuretic Peptide 22 ( - 100) pg/mL Total Protein (6.4-8.9) g/dL Albumin (3.2-5.2) g/dL Globulin (2-4) g/dL Albumin/Globulin Ratio (1-3) Lipase (11.0-82.0) U/L TSH (0.34-5.60) mcIU/mL Assess/Plan/Problems-Billing Assessment: Mr. Bellamy is a 31yo M with PMH of polycycstic kidney disease, CKD stage 4, super morbid obesity with BMI 64, HTN, migraines, who presented to ED with c/o left flank pain, pleuritic retrosternal CP and dyspnea, found to have a minimally elevated troponin and positive d-Dimer, suggestive of PE. - Patient Problems (1) Polycystic kidney disease Current Visit: Yes Status: Acute Code(s): Q61.3 - POLYCYSTIC KIDNEY, UNSPECIFIED SNOMED Code(s): 66710967 Comment: Est GFR 22.8 04/14/17. Stable. (2) Morbid obesity Current Visit: Yes Status: Acute Code(s): E66.01 - MORBID (SEVERE) OBESITY DUE TO EXCESS CALORIES SNOMED Code(s): 750291857 Comment: BMI 64.3. (3) Pulmonary embolism Current Visit: Yes Status: Acute Code(s): I26.99 - OTHER PULMONARY EMBOLISM WITHOUT ACUTE COR PULMONALE SNOMED Code(s): 09387250 Comment: Clinical diagnosis. CTA contraindicated due to renal disease. Patient too heavy for nuclear scan. Continue argatroban infusion, warfarin. Goal INR > 4 on argatroban, then stop 4 hrs to see if INR still > 2. As no reversible inciting event/condition has been identified, lifelong anticoagulation indicated. Status and Disposition: Change to inpatient.
[2017-04-16] MEDS: oxyCODONE TAB* 5 MG TAB PO PRN ×4 (02:12→23:25)
[2017-04-16] MEDS: Argatroban(*) 250 MG in NS 0.9% 250 ML* 247.5 ML IV SCH ×3 (02:37→19:32)
[2017-04-16] MEDS: Ondansetron ODT TAB* 4 MG SL PRN ×3 (05:20→20:30)
[2017-04-16] MEDS: Omeprazole CAP* 20 MG PO SCH (05:20)
[2017-04-16] MEDS: Docusate CAP* 100 MG PO SCH ×2 (07:51→20:37)
[2017-04-16] MEDS: Metoprolol Tartrate IV* 1 MG/ML 5 ML VIAL IV PRN (11:33)
--- NOTE | 2017-04-16 15:18 | PN ---
Subjective Date of Service: 04/16/17 Interval History: Vomiting with a small amount of blood mxed in with bile. He had a nosebleed this AM. He occ has emesis at home. He had an EGD in 2008 which he says did not show anything. Family History: Unchanged from Admission Social History: Unchanged from Admission Past Medical History: Unchanged from Admission Objective Active Medications: Acetaminophen (Tylenol Tab*) 650 mg PO Q6H PRN PRN Reason: FEVER/PAIN Last Admin: 04/12/17 09:25 Dose: 650 mg Docusate Sodium (Colace Cap*) 200 mg PO BID [facility] Last Admin: 04/16/17 07:51 Dose: 200 mg Heparin Sodium (Porcine) (Heparin Flush Picc/Ml/Cvc(*)) 1 - 3 ml FLUSH 0600, 1800 [facility] PRN Reason: Protocol Last Admin: 04/16/17 06:42 Dose: Not Given Argatroban 250 mg/ Sodium (Chloride) 250 mls @ 28.73 mls/hr IV Q8HR [facility] PRN Reason: 2 MCG/KG/MIN Last Admin: 04/16/17 10:32 Dose: 28.73 mls/hr Metoprolol Tartrate (Lopressor Iv*) 5 mg IV Q6H PRN PRN Reason: systolic > 160 Last Admin: 04/16/17 11:33 Dose: 5 mg Omeprazole (Prilosec Cap*) 20 mg PO DAILY@0600 [facility] Last Admin: 04/16/17 05:20 Dose: 20 mg Ondansetron HCl (Zofran Odt Tab*) 4 mg SL Q6H PRN PRN Reason: NAUSEA/VOMITING Last Admin: 04/16/17 12:20 Dose: 4 mg Oxycodone HCl (Roxycodone Tab*) 5 mg PO Q4H PRN PRN Reason: PAIN - MODERATE Oxycodone HCl (Roxycodone Tab*) 10 mg PO Q4H PRN PRN Reason: PAIN - SEVERE Last Admin: 04/16/17 07:27 Dose: 10 mg Warfarin Sodium (Coumadin Tab(*)) 6 mg PO DAILY@1700 [facility] PRN Reason: Protocol Vital Signs 04/15/17 04/15/17 04/15/17 15:31 15:39 17:29 Temperature 98.5 F Pulse Rate 96 Respiratory 18 16 18 Rate Blood Pressure 148/88 (mmHg) O2 Sat by Pulse 97 Oximetry 04/15/17 04/15/17 04/15/17 19:25 19:49 20:02 Temperature 97.9 F Pulse Rate 99 Respiratory 18 16 16 Rate Blood Pressure 152/90 (mmHg) O2 Sat by Pulse 88 Oximetry 04/15/17 04/15/17 04/16/17 21:49 23:41 02:12 Temperature 98.4 F Pulse Rate 95 Respiratory 16 16 16 Rate Blood Pressure 133/85 (mmHg) O2 Sat by Pulse 95 Oximetry 04/16/17 04/16/17 04/16/17 03:55 04:12 07:09 Temperature 99.0 F 98.9 F Pulse Rate 100 93 Respiratory 16 16 Rate Blood Pressure 154/90 149/93 (mmHg) O2 Sat by Pulse 90 95 Oximetry 04/16/17 04/16/17 04/16/17 07:27 08:00 09:27 Temperature Pulse Rate Respiratory 18 18 16 Rate Blood Pressure (mmHg) O2 Sat by Pulse Oximetry 04/16/17 11:08 Temperature 98.1 F Pulse Rate 98 Respiratory 20 Rate Blood Pressure 189/93 (mmHg) O2 Sat by Pulse 87 Oximetry Oxygen Devices in Use Now: None Appearance: Alert, sitting on the edge of his bed. In good spirits. Looks comfortable. Abdominal: NL Sounds; No Tenderness; No Distention, No Hepatosplenomegaly, - Extremities: No Edema, No Clubbing, Cyanosis, - Skin: No Rash or Ulcers, No Nodules or Sclerosis, - Neurological: Alert and Oriented x 3, NL Sensation Result Diagrams: 04/14/17 16:38 04/14/17 04:57 Additional Lab and Data: Lab Results 04/11/17 04/11/17 04/11/17 Range/Units 23:00 23:00 23:00 WBC (3.5-10.8) 10^3/ul RBC (4.0-5.4) 10^6/ul Hgb (14.0-18.0) g/dl Hct (42-52) % MCV (80-94) fL MCH (27-31) pg MCHC (31-36) g/dl RDW (10.5-15) % Plt Count (150-450) 10^3/ul MPV (7.4-10.4) um3 Neut % (Auto) (38-83) % Lymph % (Auto) (25-47) % Phillips % (Auto) (1-9) % Eos % (Auto) (0-6) % Baso % (Auto) (0-2) % Absolute Neuts (auto) (1.5-7.7) 10^3/ul Absolute Lymphs (auto) (1.0-4.8) 10^3/ul Absolute Monos (auto) (0-0.8) 10^3/ul Absolute Eos (auto) (0-0.6) 10^3/ul Absolute Basos (auto) (0-0.2) 10^3/ul Absolute Nucleated RBC 10^3/ul Nucleated RBC % INR (Anticoag Therapy) 1.00 (0.89-1.11) APTT 31.7 (26.0-36.3) seconds D-Dimer, Quantitative 615 H (Less Than 230) ng/mL Sodium 137 (133-145) mmol/L Potassium 4.5 (3.5-5.0) mmol/L Chloride 109 (101-111) mmol/L Carbon Dioxide 19 L (22-32) mmol/L Anion Gap 9 (2-11) mmol/L BUN 37 H (6-24) mg/dL Creatinine 3.29 H (0.67-1.17) mg/dL Est GFR ( Amer) 28.7 (>60) Est GFR (Non-Af Amer) 22.4 (>60) BUN/Creatinine Ratio 11.2 (8-20) Glucose 102 H (70-100) mg/dL Lactic Acid 1.2 (0.5-2.0) mmol/L Calcium 9.0 (8.6-10.3) mg/dL Magnesium 1.7 L (1.9-2.7) mg/dL Total Bilirubin 0.30 (0.2-1.0) mg/dL AST 15 (13-39) U/L ALT 12 (7-52) U/L Alkaline Phosphatase 81 (34-104) U/L Troponin I 0.06 H* (<0.04) ng/mL C-Reactive Protein 96.63 H (< 5.00) mg/L B-Natriuretic Peptide ( - 100) pg/mL Total Protein 8.4 (6.4-8.9) g/dL Albumin 3.8 (3.2-5.2) g/dL Globulin 4.6 H (2-4) g/dL Albumin/Globulin Ratio 0.8 L (1-3) Lipase 30 (11.0-82.0) U/L TSH 2.03 (0.34-5.60) mcIU/mL 04/11/17 04/11/17 Range/Units 23:00 23:00 WBC 10.8 (3.5-10.8) 10^3/ul RBC 5.38 (4.0-5.4) 10^6/ul Hgb 14.0 (14.0-18.0) g/dl Hct 43 (42-52) % MCV 79 L (80-94) fL MCH 26 L (27-31) pg MCHC 33 (31-36) g/dl RDW 16 H (10.5-15) % Plt Count 272 (150-450) 10^3/ul MPV 8 (7.4-10.4) um3 Neut % (Auto) 71.6 (38-83) % Lymph % (Auto) 19.3 L (25-47) % Phillips % (Auto) 6.9 (1-9) % Eos % (Auto) 1.2 (0-6) % Baso % (Auto) 1.0 (0-2) % Absolute Neuts (auto) 7.7 (1.5-7.7) 10^3/ul Absolute Lymphs (auto) 2.1 (1.0-4.8) 10^3/ul Absolute Monos (auto) 0.7 (0-0.8) 10^3/ul Absolute Eos (auto) 0.1 (0-0.6) 10^3/ul Absolute Basos (auto) 0.1 (0-0.2) 10^3/ul Absolute Nucleated RBC 0.01 10^3/ul Nucleated RBC % 0 INR (Anticoag Therapy) (0.89-1.11) APTT (26.0-36.3) seconds D-Dimer, Quantitative (Less Than 230) ng/mL Sodium (133-145) mmol/L Potassium (3.5-5.0) mmol/L Chloride (101-111) mmol/L Carbon Dioxide (22-32) mmol/L Anion Gap (2-11) mmol/L BUN (6-24) mg/dL Creatinine (0.67-1.17) mg/dL Est GFR ( Amer) (>60) Est GFR (Non-Af Amer) (>60) BUN/Creatinine Ratio (8-20) Glucose (70-100) mg/dL Lactic Acid (0.5-2.0) mmol/L Calcium (8.6-10.3) mg/dL Magnesium (1.9-2.7) mg/dL Total Bilirubin (0.2-1.0) mg/dL AST (13-39) U/L ALT (7-52) U/L Alkaline Phosphatase (34-104) U/L Troponin I (<0.04) ng/mL C-Reactive Protein (< 5.00) mg/L B-Natriuretic Peptide 22 ( - 100) pg/mL Total Protein (6.4-8.9) g/dL Albumin (3.2-5.2) g/dL Globulin (2-4) g/dL Albumin/Globulin Ratio (1-3) Lipase (11.0-82.0) U/L TSH (0.34-5.60) mcIU/mL Assess/Plan/Problems-Billing Assessment: Mr. Bellamy is a 31yo M with PMH of polycycstic kidney disease, CKD stage 4, super morbid obesity with BMI 64, HTN, migraines, who presented to ED with c/o left flank pain, pleuritic retrosternal CP and dyspnea, found to have a minimally elevated troponin and positive d-Dimer, suggestive of PE. - Patient Problems (1) Polycystic kidney disease Current Visit: Yes Status: Acute Code(s): Q61.3 - POLYCYSTIC KIDNEY, UNSPECIFIED SNOMED Code(s): 85851249 Comment: Est GFR 22.8 04/14/17. Stable. (2) Morbid obesity Current Visit: Yes Status: Acute Code(s): E66.01 - MORBID (SEVERE) OBESITY DUE TO EXCESS CALORIES SNOMED Code(s): 155519223 Comment: BMI 64.3. (3) Pulmonary embolism Current Visit: Yes Status: Acute Code(s): I26.99 - OTHER PULMONARY EMBOLISM WITHOUT ACUTE COR PULMONALE SNOMED Code(s): 78215928 Comment: Clinical diagnosis. CTA contraindicated due to renal disease. Patient too heavy for nuclear scan. Continue argatroban infusion, warfarin. Goal INR > 4 on argatroban, then stop 4 hrs to see if INR still > 2. As no reversible inciting event/condition has been identified, lifelong anticoagulation indicated. (4) Hematemesis Current Visit: Yes Status: Acute Code(s): K92.0 - HEMATEMESIS SNOMED Code( s): 1481432 Comment: Discussed with Dr. Keyes. He will arrange for anesthesia coverage for EGD now. CBC now and again in AM. Hold warfarin until EGD done. Status and Disposition: Change to inpatient.
[2017-04-16 16:16] LABS: Hematocrit 40 % (42-52); Hemoglobin 12.7 g/dl (14.0-18.0); Mean Corpuscular HGB Conc 32 g/dl (31-36); Mean Corpuscular Hemoglobin 25 pg (27-31); Mean Corpuscular Volume 80 fL (80-94); Mean Platelet Volume 8 um3 (7.4-10.4); Red Blood Count 5.01 10^6/ul (4.0-5.4); Red Cell Distribution Width 16 % (10.5-15); White Blood Count 7.9 10^3/ul (3.5-10.8)
[2017-04-16] MEDS ORDERED: Warfarin TAB(*) 6 MG PO SCH (17:00)
[2017-04-16] MEDS ORDERED: NS 0.9% 250 ML* 0 ML ONE (19:15)
[2017-04-16] MEDS: Acetaminophen TAB* 325 MG PO PRN (20:31)
--- NOTE | 2017-04-16 21:22 | CONS ---
GASTROENTEROLOGY CONSULT: DATE OF CONSULTATION: 04/16/17 CONSULTING PHYSICIANS: Benjamin Carr MD, Dr. Eddie Villagomez. REASON FOR CONSULTATION: Hematemesis. HISTORY: This super morbidly obese (528 pounds) 31-year-old man has been in the hospital for 5 days after presenting to the ER with shortness of breath and left flank pain. His D-dimer was up and as he cannot have other diagnostic studies, the decision has been made to treat him empirically for possible pulmonary embolism with heparin transitioning to Coumadin. This afternoon, he became nauseated and vomited up a small amount of blood. He had . He somewhat through it, but also just did not feel like it. He had had a half of blueberry muffin and a half of bagel for breakfast around 9 a.m. There has been no further emesis, dizziness, or stools today. He states that he does get nauseated and have some brief vomiting first thing in the morning about every other week. He cannot discern any particular pattern predicting this. There has not been any blood in it. He has not had any gastrointestinal workup and has not been on any acid blockade or other gastrointestinal remedies. He takes Tylenol if he has an ache or pain as he is aware that aspirin, Advil, and Aleve put a strain on the kidneys. He cannot have a CTA because of his creatinine of about 3 and he is too big to fit on the nuclear medicine table for a V/Q scan. His D-dimer was up. There has been no prior history of clots. Venous Doppler of the legs was negative. PAST MEDICAL HISTORY: 1. Super morbid obesity - remarkably enough, does not really have metabolic syndrome in that he is not treated for hypertension or diabetes. 2. Polycystic renal disease - advanced. 3. History of left orchiectomy for non-descent anomaly. 4. Tonsillectomy. MEDICATIONS: Outpatient meds are acetaminophen and diphenhydramine only. SOCIAL HISTORY: He is from this area originally, but lived in [place] for a few years, but coming back here 3 years ago. 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 He has not seen Dr. Villagomez in a couple of years. REVIEW OF SYSTEMS: He has been to the ER a number of times and has had 7 CTs of the abdomen and pelvis since May 2014. There is no history of TB, chronic fevers, hemoptysis, psoriasis, other chronic skin disease, blood clots, rectal bleeding, urinary bleeding. PHYSICAL EXAMINATION: He is a morbidly obese man in bed, lying flat. The skin is unremarkable apart from indurated edema, bilateral lower extremities that seems equal. HEENT exam just shows a redundant neck. He is not short of breath , lying flat. He is anicteric. He has no adenopathy, but the exam is limited. Breath sounds are diminished probably secondary to chest wall thickness. Heart sounds are regular and faint. The abdomen is obese with normal bowel sounds, symmetric and there is no palpable abnormality. Rectal: Deferred at this moment. Neurologic is nonfocal, able to move all 4 extremities and he is alert and oriented. LABORATORY DATA: Hemoglobin this admission starting at 14 and now down to 12 with an MCV of 79 to 80. Chemistry showed creatinine of 3.23, BUN 33, bilirubin 0.3. BNP 22. Albumin 3.8. IMPRESSION: This super morbidly obese 31-year-old man who presented with shortness of breath and had an elevated D-dimer presents difficult diagnostic and management decision. For the moment, empiric heparin and warfarin are being considered. One wonders whether following serial D-dimers over many weeks to months could give some information that would be useful in regards to this decision point when lots of followup data is available. Knowing that that is not the case at the moment, he has now vomited up some blood and it would probably be helpful to know more about his esophagus and stomach, especially as gastroesophageal reflux disease can be silent more often in morbidly obese. It is also more silent in the elderly, but as he is likely to have many many difficult decision points regularly over time, getting information from an endoscopy could be useful. It will thus be planned when Anesthesia is available to monitor. It is not clearly emergent at the moment, both clinically and because of his having had a small breakfast. [id number]/CPS #: [id number] [facility]
[2017-04-17] MEDS: Argatroban(*) 250 MG in NS 0.9% 250 ML* 247.5 ML IV SCH ×2 (04:17→09:26)
[2017-04-17] MEDS: Acetaminophen TAB* 325 MG PO PRN (04:17)
[2017-04-17] MEDS: oxyCODONE TAB* 5 MG TAB PO PRN ×3 (04:18→15:32)
[2017-04-17] MEDS: Omeprazole CAP* 20 MG PO SCH (06:45)
[2017-04-17 07:19] LABS: Hematocrit 39 % (42-52); Hemoglobin 12.1 g/dl (14.0-18.0); Mean Corpuscular HGB Conc 32 g/dl (31-36); Mean Corpuscular Hemoglobin 25 pg (27-31); Mean Corpuscular Volume 81 fL (80-94); Mean Platelet Volume 8 um3 (7.4-10.4); Red Blood Count 4.77 10^6/ul (4.0-5.4); Red Cell Distribution Width 16 % (10.5-15); White Blood Count 9.1 10^3/ul (3.5-10.8)
[2017-04-17] MEDS: Docusate CAP* 100 MG PO SCH ×3 (08:43→21:27)
[2017-04-17] MEDS: Ondansetron ODT TAB* 4 MG SL PRN (09:03)
[2017-04-17] MEDS ORDERED: Buffered Lidocaine 0.9% SYRIN* 5 ML/SYR SYRINGE ONE (11:48)
[2017-04-17] MEDS ORDERED: Lidocaine 4% TOPICAL* 50 ML TOP.SOLN ONE (12:54)
[2017-04-17] MEDS ORDERED: Lidocaine 2% PF * 5 ML VIAL ONE (12:56)
[2017-04-17] MEDS ORDERED: Propofol* 10 MG/ML 20 ML BTL IV PUSH ONE (12:56)
[2017-04-17] MEDS ORDERED: Midazolam* 1 MG/ML 2 ML VIAL (2 MG) ONE (12:57)
[2017-04-17] MEDS ORDERED: KETAMINE HCL* 50 MG/ML 10 ML VIAL ONE (12:57)
[2017-04-17] MEDS ORDERED: Buffered Lidocaine 0.9% SYRIN* 5 ML/SYR SYRINGE INTRADERM ONE (12:59)
[2017-04-17] MEDS ORDERED: NS 0.9% 1000 ML* 1,000 ML IV SCH (13:00)
[2017-04-17] MEDS ORDERED: Levalbuterol 0.63MG/3ML NEB* UNIT OF USE INH PRN (13:00)
[2017-04-17] MEDS ORDERED: Ondansetron INJ* 2 MG/ML VIAL IV PRN (13:00)
[2017-04-17] MEDS ORDERED: DiMENhydriNATE IV* 50 MG/ML VIAL IV PUSH PRN (13:00)
[2017-04-17] MEDS ORDERED: diPHENhydraMINE IV* 50 MG/ML 1 ml VIAL (BENADRYL) ONE (13:02)
--- NOTE | 2017-04-17 13:11 | PN ---
Subjective Date of Service: 04/17/17 Interval History: No more emesis. No new c/o. Family History: Unchanged from Admission Social History: Unchanged from Admission Past Medical History: Unchanged from Admission Objective Active Medications: Acetaminophen (Tylenol Tab*) 650 mg PO Q6H PRN PRN Reason: FEVER/PAIN Last Admin: 04/17/17 04:17 Dose: 650 mg Dimenhydrinate (Dramamine Iv*) 12.5 mg IV PUSH ONCE PRN PRN Reason: NAUSEA/VOMITING Stop: 04/17/17 13:01 Docusate Sodium (Colace Cap*) 200 mg PO BID [facility] Last Admin: 04/17/17 09:04 Dose: 200 mg Heparin Sodium (Porcine) (Heparin Flush Picc/Ml/Cvc(*)) 1 - 3 ml FLUSH 0600, 1800 [facility] PRN Reason: Protocol Last Admin: 04/17/17 08:18 Dose: Not Given Sodium Chloride (Ns 0.9% 1000 Ml*) 1,000 mls @ 25 mls/hr IV PER RATE [facility] Levalbuterol HCl (Xopenex 0.63mg/3ml Neb*) 0.63 mg INH ONCE PRN PRN Reason: SOB/WHEEZING Stop: 04/18/17 13:01 Metoprolol Tartrate (Lopressor Iv*) 5 mg IV Q6H PRN PRN Reason: systolic > 160 Last Admin: 04/16/17 11:33 Dose: 5 mg Omeprazole (Prilosec Cap*) 20 mg PO DAILY@0600 [facility] Last Admin: 04/17/17 06:45 Dose: Not Given Ondansetron HCl (Zofran Odt Tab*) 4 mg SL Q6H PRN PRN Reason: NAUSEA/VOMITING Last Admin: 04/17/17 09:03 Dose: 4 mg Ondansetron HCl (Zofran Inj*) 4 mg IV ONCE PRN PRN Reason: NAUSEA/VOMITING Stop: 04/17/17 13:01 Oxycodone HCl (Roxycodone Tab*) 5 mg PO Q4H PRN PRN Reason: PAIN - MODERATE Oxycodone HCl (Roxycodone Tab*) 10 mg PO Q4H PRN PRN Reason: PAIN - SEVERE Last Admin: 04/17/17 09:04 Dose: 10 mg Vital Signs 10/06/2104/16/17 04/16/17 15:38 18:39 19:33 Temperature 98.7 F 98.4 F Pulse Rate 96 95 Respiratory 17 20 16 Rate Blood Pressure 154/103 161/85 (mmHg) O2 Sat by Pulse 100 90 Oximetry 04/16/17 04/16/17 04/16/17 20:00 20:39 23:18 Temperature 98.4 F Pulse Rate 81 Respiratory 17 17 24 Rate Blood Pressure 174/76 (mmHg) O2 Sat by Pulse 97 Oximetry 04/16/17 04/17/17 04/17/17 23:25 01:25 02:16 Temperature Pulse Rate Respiratory 18 16 Rate Blood Pressure (mmHg) O2 Sat by Pulse 92 Oximetry 04/17/17 04/17/17 04/17/17 03:25 03:43 04:18 Temperature 97.4 F Pulse Rate 85 Respiratory 24 16 Rate Blood Pressure 206/98 153/86 (mmHg) O2 Sat by Pulse 96 Oximetry 04/17/17 04/17/17 04/17/17 06:18 07:34 08:00 Temperature 97.4 F Pulse Rate 87 Respiratory 16 20 20 Rate Blood Pressure 156/84 (mmHg) O2 Sat by Pulse 96 Oximetry 04/17/17 09:04 Temperature Pulse Rate Respiratory 18 Rate Blood Pressure (mmHg) O2 Sat by Pulse Oximetry Oxygen Devices in Use Now: None Appearance: Supine in bed. In good spirits. Looks comfortable. Respiratory: Symmetrical Chest Expansion and Respiratory Effort, Clear to Auscultation, Clear to Percussion Cardiovascular: NL Sounds; No Murmurs; No JVD, RRR, No Edema, - Extremities: No Edema, No Clubbing, Cyanosis, - Skin: No Rash or Ulcers, No Nodules or Sclerosis, - Neurological: Alert and Oriented x 3, NL Sensation Result Diagrams: 04/17/17 07:00 04/16/17 15:38 Additional Lab and Data: Lab Results 04/11/17 04/11/17 04/11/17 Range/Units 23:00 23:00 23:00 WBC (3.5-10.8) 10^3/ul RBC (4.0-5.4) 10^6/ul Hgb (14.0-18.0) g/dl Hct (42-52) % MCV (80-94) fL MCH (27-31) pg MCHC (31-36) g/dl RDW (10.5-15) % Plt Count (150-450) 10^3/ul MPV (7.4-10.4) um3 Neut % (Auto) (38-83) % Lymph % (Auto) (25-47) % [place] % (Auto) (1-9) % Eos % (Auto) (0-6) % Baso % (Auto) (0-2) % Absolute Neuts (auto) (1.5-7.7) 10^3/ul Absolute Lymphs (auto) (1.0-4.8) 10^3/ul Absolute Monos (auto) (0-0.8) 10^3/ul Absolute Eos (auto) (0-0.6) 10^3/ul Absolute Basos (auto) (0-0.2) 10^3/ul Absolute Nucleated RBC 10^3/ul Nucleated RBC % INR (Anticoag Therapy) 1.00 (0.89-1.11) APTT 31.7 (26.0-36.3) seconds D-Dimer, Quantitative 615 H (Less Than 230) ng/mL Sodium 137 (133-145) mmol/L Potassium 4.5 (3.5-5.0) mmol/L Chloride 109 (101-111) mmol/L Carbon Dioxide 19 L (22-32) mmol/L Anion Gap 9 (2-11) mmol/L BUN 37 H (6-24) mg/dL Creatinine 3.29 H (0.67-1.17) mg/dL Est GFR ( Amer) 28.7 (>60) Est GFR (Non-Af Amer) 22.4 (>60) BUN/Creatinine Ratio 11.2 (8-20) Glucose 102 H (70-100) mg/dL Lactic Acid 1.2 (0.5-2.0) mmol/L Calcium 9.0 (8.6-10.3) mg/dL Magnesium 1.7 L (1.9-2.7) mg/dL Total Bilirubin 0.30 (0.2-1.0) mg/dL AST 15 (13-39) U/L ALT 12 (7-52) U/L Alkaline Phosphatase 81 (34-104) U/L Troponin I 0.06 H* (<0.04) ng/mL C-Reactive Protein 96.63 H (< 5.00) mg/L B-Natriuretic Peptide ( - 100) pg/mL Total Protein 8.4 (6.4-8.9) g/dL Albumin 3.8 (3.2-5.2) g/dL Globulin 4.6 H (2-4) g/dL Albumin/Globulin Ratio 0.8 L (1-3) Lipase 30 (11.0-82.0) U/L TSH 2.03 (0.34-5.60) mcIU/mL 04/11/17 04/11/17 Range/Units 23:00 23:00 WBC 10.8 (3.5-10.8) 10^3/ul RBC 5.38 (4.0-5.4) 10^6/ul Hgb 14.0 (14.0-18.0) g/dl Hct 43 (42-52) % MCV 79 L (80-94) fL MCH 26 L (27-31) pg MCHC 33 (31-36) g/dl RDW 16 H (10.5-15) % Plt Count 272 (150-450) 10^3/ul MPV 8 (7.4-10.4) um3 Neut % (Auto) 71.6 (38-83) % Lymph % (Auto) 19.3 L (25-47) % [place] % (Auto) 6.9 (1-9) % Eos % (Auto) 1.2 (0-6) % Baso % (Auto) 1.0 (0-2) % Absolute Neuts (auto) 7.7 (1.5-7.7) 10^3/ul Absolute Lymphs (auto) 2.1 (1.0-4.8) 10^3/ul Absolute Monos (auto) 0.7 (0-0.8) 10^3/ul Absolute Eos (auto) 0.1 (0-0.6) 10^3/ul Absolute Basos (auto) 0.1 (0-0.2) 10^3/ul Absolute Nucleated RBC 0.01 10^3/ul Nucleated RBC % 0 INR (Anticoag Therapy) (0.89-1.11) APTT (26.0-36.3) seconds D-Dimer, Quantitative (Less Than 230) ng/mL Sodium (133-145) mmol/L Potassium (3.5-5.0) mmol/L Chloride (101-111) mmol/L Carbon Dioxide (22-32) mmol/L Anion Gap (2-11) mmol/L BUN (6-24) mg/dL Creatinine (0.67-1.17) mg/dL Est GFR ( Amer) (>60) Est GFR (Non-Af Amer) (>60) BUN/Creatinine Ratio (8-20) Glucose (70-100) mg/dL Lactic Acid (0.5-2.0) mmol/L Calcium (8.6-10.3) mg/dL Magnesium (1.9-2.7) mg/dL Total Bilirubin (0.2-1.0) mg/dL AST (13-39) U/L ALT (7-52) U/L Alkaline Phosphatase (34-104) U/L Troponin I (<0.04) ng/mL C-Reactive Protein (< 5.00) mg/L B-Natriuretic Peptide 22 ( - 100) pg/mL Total Protein (6.4-8.9) g/dL Albumin (3.2-5.2) g/dL Globulin (2-4) g/dL Albumin/Globulin Ratio (1-3) Lipase (11.0-82.0) U/L TSH (0.34-5.60) mcIU/mL Assess/Plan/Problems-Billing Assessment: Mr. Bellamy is a 31yo M with PMH of polycycstic kidney disease, CKD stage 4, super morbid obesity with BMI 64, HTN, migraines, who presented to ED with c/o left flank pain, pleuritic retrosternal CP and dyspnea, found to have a minimally elevated troponin and positive d-Dimer, suggestive of PE. - Patient Problems (1) Polycystic kidney disease Current Visit: Yes Status: Acute Code(s): Q61.3 - POLYCYSTIC KIDNEY, UNSPECIFIED SNOMED Code(s): 58675515 Comment: Est GFR 22.8 04/14/17. Stable. (2) Morbid obesity Current Visit: Yes Status: Acute Code(s): E66.01 - MORBID (SEVERE) OBESITY DUE TO EXCESS CALORIES SNOMED Code(s): 802994788 Comment: BMI 64.3. (3) Pulmonary embolism Current Visit: Yes Status: Acute Code(s): I26.99 - OTHER PULMONARY EMBOLISM WITHOUT ACUTE COR PULMONALE SNOMED Code(s): 55418885 Comment: Clinical diagnosis. CTA contraindicated due to renal disease. Patient too heavy for nuclear scan. Continue argatroban infusion, warfarin. Goal INR > 4 on argatroban, then stop 4 hrs to see if INR still > 2. As no reversible inciting event/condition has been identified, lifelong anticoagulation indicated. Warfarin held 04/16. INR off agratroban pending 04/17. (4) Hematemesis Current Visit: Yes Status: Acute Code(s): K92.0 - HEMATEMESIS SNOMED Code( s): 8747343 Comment: Discussed with Dr. Keyes. He will arrange for anesthesia coverage for EGD now. CBC now and again in AM. EGD to be done 10/13 PM. Status and Disposition: Change to inpatient.
[2017-04-17] MEDS ORDERED: Metoprolol Tartrate IV* 1 MG/ML 5 ML VIAL ONE (13:32)
[2017-04-17 14:41] LABS: Hematocrit 37 % (42-52); Hemoglobin 11.7 g/dl (14.0-18.0); Mean Corpuscular HGB Conc 31 g/dl (31-36); Mean Corpuscular Hemoglobin 25 pg (27-31); Mean Corpuscular Volume 80 fL (80-94); Mean Platelet Volume 8 um3 (7.4-10.4); Red Blood Count 4.68 10^6/ul (4.0-5.4); Red Cell Distribution Width 16 % (10.5-15); White Blood Count 7.8 10^3/ul (3.5-10.8)
[2017-04-17] MEDS ORDERED: Warfarin TAB(*) 6 MG PO SCH (17:00)
[2017-04-18] MEDS: Acetaminophen TAB* 325 MG PO PRN (00:13)
[2017-04-18] MEDS: oxyCODONE TAB* 5 MG TAB PO PRN (00:14)
--- NOTE | 2017-04-18 01:39 | PRO ---
DATE: 04/17/17 - ROOM #446 REFERRING PHYSICIAN: Benjamin Carr MD; Dr. Eddie Villagomez.* PROCEDURE: Upper gastrointestinal endoscopy through third portions of duodenum. INDICATION: This 31-year-old man had a small amount of hematemesis yesterday. This morning he had a little bit of nosebleed. He is on warfarin with an INR today of 4. He has no past history of chronic acid peptic disease. He is being treated empirically for presumed pulmonary embolism. Conversations today with Dr. Carr and Dr. Mckinney options for the least invasive and least risky workup of the small amount of vomit of blood were reviewed. It was elected as he is able to position himself and does not have documented prior sleep apnea to do a monitored anesthesia, upper endoscopy with pediatric scope. The patient accepted this and was anxious to get some further information. ENDOSCOPIST: Dr. Keyes. MEDICATION: Propofol per Dr. Mckinney after respiratory treatment. FINDINGS: He is a morbidly obese man who positioned himself on his side. EGD: Larynx - narrow in this lower pharyngeal area with the tonsils basically come into midline. The cords themselves were symmetric. Esophagus - easily entered and the mucosa is normal in the upper, mid and lower esophagus with the EG junction snug at 41. There are no peptic changes and no hiatal hernia or erosions. There was no fundic prolapse or regurgitation. Stomach - generally normal mucosa in the cardia, fundus, body and antrum. No erosions were seen. Duodenum - the pylorus, bulb, and second through fourth portions were normal. All areas were reviewed during withdrawal with no new findings. With his INR of 4, biopsy for Helicobacter was not done, though he can have a stool antigen test as an outpatient. IMPRESSION: 1. Normal endoscopy. 2. Vomiting up blood - small volume, may have been from a nasal or pharyngeal source causing some gagging. He would appear to be a low risk for upper gastrointestinal bleeding during anticipated anticoagulation. [id number]/[facility] #: [id number] [facility]
[2017-04-18 05:48] LABS: Hematocrit 38 % (42-52); Hemoglobin 11.9 g/dl (14.0-18.0); Mean Corpuscular HGB Conc 32 g/dl (31-36); Mean Corpuscular Hemoglobin 25 pg (27-31); Mean Corpuscular Volume 80 fL (80-94); Mean Platelet Volume 8 um3 (7.4-10.4); Red Blood Count 4.69 10^6/ul (4.0-5.4); Red Cell Distribution Width 15 % (10.5-15); White Blood Count 7.3 10^3/ul (3.5-10.8)
[2017-04-18 06:02] LABS: BUN/Creatinine Ratio 9.3 (8-20); Calcium 8.5 mg/dL (8.6-10.3); EGFR African American 24.6 (>60); EGFR Non-African American 19.1 (>60)
[2017-04-18 06:15] LABS: Potassium 5.1 mmol/L (3.5-5.0)
[2017-04-18] MEDS: Omeprazole CAP* 20 MG PO SCH (06:23)
[2017-04-18] MEDS ORDERED: HYDROcodone/ACETAMIN 5-325 MG* 1 TAB PO PRN (09:13)
--- NOTE | 2017-04-18 09:23 | PN ---
"Progress Note - Progress Note Date of Service: 04/18/17 Note: Time spent on discharge 50 minutes. Search Terms: lamberto bhatti, 1985 Search Date: 04/18/2017 09:18:58 AM The Drug Utilization Report below displays all of the controlled substance prescriptions, if any, that your patient has filled in the last twelve months. The information displayed on this report is compiled from pharmacy submissions to the Department, and accurately reflects the information as submitted by the pharmacies. This report was requested by: Keith Carr | Reference #: [id number] There are no results for the search terms that you entered."
[2017-04-18] MEDS: Docusate CAP* 100 MG PO SCH (10:06)
[2017-04-18 10:31] VITALS: BP 152/94
--- NOTE | 2017-04-18 14:16 | DS ---
CC: Dr. Villagomez DISCHARGE SUMMARY: DATE OF ADMISSION: 04/13/17 DATE OF DISCHARGE: 04/18/17. HISTORY OF PRESENT ILLNESS: This 31-year-old man presented with left flank pain and chest pressure. Flank pain is rather normal for him as he has polycystic kidney disease, rather severe degree and says he has frequent episodes of pain. The chest pressure however was new. He had emesis, which I t hink is probably related to his pain, which is also how he attributes it. He was short of breath wi th this episode. He was found to have an elevated D-dimer. Because of this poor renal function, he could not have CT angiogram. Because of his extremely high weight, he could not have a V/Q lung sc an. He did have Doppler study of the legs. This did not show any evidence of deep vein thrombosis; however, it was felt as he is rather sedentary, a very obese man that with an elevated D-dimer, ches t pressure, and shortness of breath that the clinical likelihood is significant that he has pulmonar y embolus. He was treated for such. I note that there was no real inciting event that is reversibl e for this that lifelong anticoagulation would be recommended. The patient was given some Heparin, but later switched to argatroban. He was given warfarin. He [place] d a total of 31 mg of warfarin in the hospital over the 5 days before discharge. His INR on the day of discharge was 2.73. He will receive 2.5 mg tablets of warfarin and was instructed to take 2 everyday at 5 p.m. starting the day of discharge, he will have an INR in 2 or 3 days. FINAL DIAGNOSES: 1. Clinical diagnosis of pulmonary embolism. 2. Polycystic kidney disease with stage 4 chronic kidney disease. 3. Morbid obesity. DISCHARGE MEDICATIONS: 1. Hydrocodone acetaminophen 5/325 one every 4 hours p.r.n. 2. Warfarin 2.5 mg to take 2 daily at 5 p.m. 3. Diphenhydramine 25 mg every 4 hours p.r.n. [id number]/[facility] #: [id number]
[2017-04-18] MEDS ORDERED: Warfarin TAB(*) 5 MG PO SCH (17:00)
== END 2017-04-18 11:45 | disposition home or self-care (01) | DRG 134 ==
LOC: ED 22:02 → MEDTELE 04-12 00:30 → OBSVTOIN 04-13 15:40
PROVIDERS: ADMIT Hospitalist; ATTEND Internal Medicine
PROC: 0DJ08ZZ Inspection of Upper Intestinal Tract, Via Natural or Artificial Opening Endoscopic (ICD-10-PCS; principal; 2017-04-17 12:30)
DX: I26.99 Other pulmonary embolism without acute cor pulmonale (principal); K92.0 Hematemesis; N18.4 Chronic kidney disease, stage 4 (severe); E66.01 Morbid (severe) obesity due to excess calories; Q61.3 Polycystic kidney, unspecified; Z68.44 Body mass index [BMI] 60.0-69.9, adult; G43.909 Migraine, unspecified, not intractable, without status migrainosus; I12.9 Hypertensive chronic kidney disease with stage 1 through stage 4 chronic kidney disease, or unspecified chronic kidney disease; R10.9 Unspecified abdominal pain; K14.6 Glossodynia; R04.0 Epistaxis; Z80.6 Family history of leukemia; Z80.1 Family history of malignant neoplasm of trachea, bronchus and lung; Z88.0 Allergy status to penicillin; Z88.5 Allergy status to narcotic agent; Z87.442 Personal history of urinary calculi; Z82.49 Family history of ischemic heart disease and other diseases of the circulatory system; Z84.1 Family history of disorders of kidney and ureter; Z79.01 Long term (current) use of anticoagulants
CPT/HCPCS: 36415; 71010; 71250; 74176; 76770; 80048; 80053; 81003; 81015; 82570; 83605; 83690; 83735; 83880; 84156; 84443; 84484; 84520; 85025; 85379; 85610; 85730; 86140; 87086; 90686; 93005; 93306; 93970; 94760; 99223; 99232; A9270-GY; C8929; G0378; J0883; J1200; J1644; J2250; J2270; J2405; J2704

== ENCOUNTER 2017-06-23 17:54 | Emergency (ER) | payer OTHER ==
[2017-06-23 21:18] LABS: Hematocrit 42 % (42-52); Hemoglobin 13.1 g/dl (14.0-18.0); Mean Corpuscular HGB Conc 31 g/dl (31-36); Mean Corpuscular Hemoglobin 25 pg (27-31); Mean Corpuscular Volume 80 fL (80-94); Mean Platelet Volume 8 um3 (7.4-10.4); Red Blood Count 5.21 10^6/ul (4.0-5.4); Red Cell Distribution Width 16 % (10.5-15); White Blood Count 11.3 10^3/ul (3.5-10.8)
[2017-06-23 21:25] LABS: BUN/Creatinine Ratio 14.1 (8-20); C Reactive Protein 25.69 mg/L (< 5.00); Calcium 9.6 mg/dL (8.6-10.3); EGFR African American 26.2 (>60); EGFR Non-African American 20.3 (>60); Potassium 4.3 mmol/L (3.5-5.0); Total Bilirubin 0.3 mg/dL (0.2-1.0)
--- NOTE | 2017-06-23 21:43 | RAD ---
INDICATION: Left flank pain COMPARISON: CT April 11, 2017 TECHNIQUE: Noncontrast axial source images were acquired from the level hemidiaphragms to the symphysis pubis as part of CT imaging for renal stone. Lung bases: The lung bases are clear. Liver: The liver is normal in size. Noncontrast imaging shows no evidence of a hepatic mass or ductal dilatation. Gallbladder: There are no calcified gallstones. There is no evidence of wall thickening or pericholecystic fluid.. Spleen: The spleen is normal in size. The noncontrast CT appearance is normal. Pancreas: Noncontrast imaging shows no pancreatic mass or ductal dilitation. Adrenal glands: No masses are identified. Kidneys/Bladder: The kidneys are markedly enlarged with innumerable cysts compatible with polycystic kidney disease. There are several tiny punctate calcifications in the left kidney, unchanged. There is no hydronephrosis or hydroureter. The bladder is unremarkable. Adenopathy: There is no evidence of intraperitoneal or retroperitoneal adenopathy. Evaluation is limited without oral contrast. Fluid collections: There are no free or localized fluid collections. Vessels: The aorta and iliac vessels are normal in caliber. There are no significant atherosclerotic changes. The IVC appears normal Pelvic organs: The prostate and seminal vesicles appear normal GI tract: Evaluation of the bowel is limited without oral contrast. The stomach, small bowel, and lower GI tract appear grossly normal. There are no obstructive findings. The appendix is visualized and appears normal. Soft tissues: No soft tissue abnormalities of the extraperitoneal abdomen or pelvis are identified. Osseous structures: There are no acute osseous findings. IMPRESSION: POLYCYSTIC KIDNEY DISEASE. NO INTERVAL CHANGES
[2017-06-23] MEDS ORDERED: NS 0.9% 1000 ML* 1,000 ML IV ONE (21:56)
[2017-06-23] MEDS ORDERED: Ondansetron INJ* 2 MG/ML VIAL IV ONE (21:56)
[2017-06-23] MEDS ORDERED: Morphine INJ* 4 MG/ML 1 ML CARPUJECT IV ONE (21:56)
[2017-06-23] MEDS ORDERED: Ciprofloxacin 400MG IVPREMIX(* 400 MG/200 ML BAG IVPB ONE (22:20)
--- NOTE | 2017-06-23 23:01 | ED ---
Vangie Sanders Julia, scribed for Jordan Godoy MD on 06/23/17 at 2108 . Abdominal Pain/Male - HPI Summary HPI Summary: This patient is a 32 year old M presenting to [facility] with a chief complaint of worsening L flank pain since 06/21/17. The patient rates the pain 9/10 in severity. Symptoms aggravated by movement. Symptoms alleviated by nothing. Patient reports dysuria and vomiting. Patient denies fever, hematuria, urinary retention, or bowel symptoms. Patient has history of Polycystic Kidney Disease. - History of Current Complaint Chief Complaint: EDFlankPain Stated Complaint: LT FLANK PAIN/VOMITING/BURNING WHEN URINATING Time Seen by Provider: 06/23/17 20:17 Hx Obtained From: Patient Onset/Duration: Gradual Onset, Lasting Days - since 06/21/17, Still Present Timing: Constant Severity Currently: Severe Pain Intensity: 9 Pain Scale Used: 0-10 Numeric Location: Flank - Left Aggravating Factor(s): Movement Alleviating Factor(s): Nothing Associated Signs And Symptoms: Positive: Other - dysuria and vomiting. Patient denies fever, hematuria, urinary retention, or bowel symptoms - Allergies/Home Medications Allergies/Adverse Reactions: Allergies Allergy/AdvReac Type Severity Reaction Status Date / Time Penicillins Allergy Severe Anaphylatic Verified 06/23/17 18:21 Shock Hydromorphone [From Dilaudid] Allergy Intermediate Hives Verified 06/23/17 18:21 PMH/Surg Hx/FS Hx/Imm Hx Endocrine/Hematology History: Denies: Hx Diabetes Cardiovascular History: Reports: Hx Hypertension Denies: Hx Hypercholesterolemia History: Reports: Hx Kidney Infection, Hx Kidney Stones, Hx Renal Disease - hx of kidney dz, Other Problems/Disorders - PKD Musculoskeletal History: Denies: Hx Arthritis Sensory History: Denies: Hx Contacts or Glasses, Hx Hearing Aid Opthamlomology History: Denies: Hx Contacts or Glasses Neurological History: Reports: Hx Migraine, Hx Spinal Cord Injury - spinal meningitis 2004 - Surgical History Surgery Procedure, Year, and Place: left orchiectomy Infectious Disease History: No Infectious Disease History: Denies: Traveled Outside the [place] in Last 30 Days - Family History Known Family History: Positive: Cardiac Disease, Renal Disease - PKD Family History: Polycystic kidney dz - Social History Alcohol Use: None Hx Substance Use: No Substance Use Type: Reports: None Hx Tobacco Use: No Smoking Status (MU): Never Smoked Tobacco Review of Systems Negative: Fever Positive: Other - Negative bowel symptoms Positive: dysuria, flank pain, other - Negative urinary retention. Negative: hematuria All Other Systems Reviewed And Are Negative: Yes Physical Exam - Summary Physical Exam Summary: Appearance: The patient is well-nourished in no acute distress and in no acute pain. Skin: The skin is warm and dry and skin color reflects adequate perfusion. HEENT: The head is normocephalic and atraumatic. The pupils are equal and reactive. The conjunctivae are clear and without drainage. Nares are patent and without drainage. Mouth reveals moist mucous membranes and the throat is without erythema and exudate. The external ears are intact. The ear canals are patent and without drainage. The tympanic membranes are intact. Neck: the neck is supple with full range of motion and non-tender. There are no carotid bruits. There is no neck vein distension. Respiratory: Chest is non-tender. Lungs are clear to auscultation and breath sounds are symmetrical and equal. Cardiovascular: Heart is regular rate and rhythm. There is no murmur or rub auscultated. There is no peripheral edema and pulses are symmetrical and equal. Abdomen: The abdomen is soft. Left CVA tenderness is present. There are normal bowel sounds heard in all four quadrants and there is no organomegaly palpated. Musculoskeletal: There is no back tenderness noted. Extremities are non-tender with full range of motion. There is good capillary refill. There is no peripheral edema or calf tenderness elicited. Neurological: Patient is alert and oriented to person, place and time. The patient has symmetrical motor strength in all four extremities. Cranial nerves are grossly intact. Deep tendon reflexes are symmetrical and equal in all four extremities. Psychiatric: The patient has an appropriate affect and does not exhibit any anxiety or depression. Triage Information Reviewed: Yes Vital Signs On Initial Exam: Initial Vitals Temp Pulse Resp BP Pulse Ox 97.9 F 112 20 171/100 96 06/23/17 18:15 06/23/17 18:15 06/23/17 18:15 06/23/17 18:15 06/23/17 18:15 Vital Signs Reviewed: Yes Abdomen Description: Positive: Other: - L CVA tenderness - Derry Coma Scale Coma Scale Total: 15 Diagnostics - Vital Signs Vital Signs Temp Pulse Resp BP Pulse Ox 06/23/17 18:15 97.9 F 112 20 171/100 96 - Laboratory Lab Results: Lab Results 06/23/17 06/23/17 06/23/17 Range/Units 20:55 20:55 20:55 WBC 11.3 H (3.5-10.8) 10^3/ul RBC 5.21 (4.0-5.4) 10^6/ul Hgb 13.1 L (14.0-18.0) g/dl Hct 42 (42-52) % MCV 80 (80-94) fL MCH 25 L (27-31) pg MCHC 31 (31-36) g/dl RDW 16 H (10.5-15) % Plt Count 307 (150-450) 10^3/ul MPV 8 (7.4-10.4) um3 Neut % (Auto) 77.9 (38-83) % Lymph % (Auto) 14.9 L (25-47) % [place] % (Auto) 5.1 (1-9) % Eos % (Auto) 1.2 (0-6) % Baso % (Auto) 0.9 (0-2) % Absolute Neuts (auto) 8.8 H (1.5-7.7) 10^3/ul Absolute Lymphs (auto) 1.7 (1.0-4.8) 10^3/ul Absolute Monos (auto) 0.6 (0-0.8) 10^3/ul Absolute Eos (auto) 0.1 (0-0.6) 10^3/ul Absolute Basos (auto) 0.1 (0-0.2) 10^3/ul Absolute Nucleated RBC 0 10^3/ul Nucleated RBC % 0 Sodium 137 (133-145) mmol/L Potassium 4.3 (3.5-5.0) mmol/L Chloride 109 (101-111) mmol/L Carbon Dioxide 19 L (22-32) mmol/L Anion Gap 9 (2-11) mmol/L BUN 50 H (6-24) mg/dL Creatinine 3.55 H (0.67-1.17) mg/dL Est GFR ( Amer) 26.2 (>60) Est GFR (Non-Af Amer) 20.3 (>60) BUN/Creatinine Ratio 14.1 (8-20) Glucose 84 (70-100) mg/dL Lactic Acid 1.0 (0.5-2.0) mmol/L Calcium 9.6 (8.6-10.3) mg/dL Total Bilirubin 0.30 (0.2-1.0) mg/dL AST 12 L (13-39) U/L ALT 11 (7-52) U/L Alkaline Phosphatase 89 (34-104) U/L C-Reactive Protein 25.69 H (< 5.00) mg/L Total Protein 9.0 H (6.4-8.9) g/dL Albumin 4.0 (3.2-5.2) g/dL Globulin 5.0 H (2-4) g/dL Albumin/Globulin Ratio 0.8 L (1-3) Lipase 27 (11.0-82.0) U/L Result Diagrams: 06/23/17 20:55 06/23/17 20:55 Lab Statement: Any lab studies that have been ordered have been reviewed, and results considered in the medical decision making process. - CT A/P CT Interpretation Completed By: Radiologist - POLYCYSTIC KIDNEY DISEASE. NO INTERVAL CHANGES. ED Physician has reviewed this report. Abdominal Pain Fem Course/Dx - Course Course Of Treatment: Mr. Bellamy presents with 2-3 days of left flank pain and dysuria. he has a history of kidney stones and PKD. His CT showed no obstructing stone and his labs were unchanged from his usual. He was given fluids and pain meds and is receiving IV Cipro at this time. His U/A is still pending. - Diagnoses Provider Diagnoses: Pyelonephritis, Polycystic kidney disease Discharge - Discharge Plan Condition: Stable Disposition: HOME Prescriptions: Ciprofloxacin TAB* [Cipro Tab*] 500 mg PO BID #10 tab Patient Education Materials: Kidney Infection (ED) Referrals: Eddie Villagomez MD [Primary Care Provider] - Additional Instructions: Follow up with Dr. Villagomez this week. The documentation as recorded by the Vangie mckay Julia accurately reflects the service I personally performed and the decisions made by , Jordan Godoy MD.
[2017-06-23 23:24] LABS: Urine Bacteria Absent (Absent); Urine Bilirubin Negative (Negative); Urine Glucose Negative (Negative); Urine Nitrite Negative (Negative)
[2017-06-24 00:17] VITALS: BP 120/81
--- NOTE | 2017-06-24 04:32 | PN ---
Nadine Sanders Emily, scribed for Venus Fitzpatrick MD on 06/23/17 at 2338 . Progress Note - Progress Note Date of Service: 06/23/17 Note: SIGN-OUT FROM DR. CURTIS UPON SHIFT CHANGE PENDING CT ABDOMEN/PELVIS RESULTS RE-EVAL: Re-evaluation of the pt at 2332. Discussed plan to discharge with ciprofloxacin with the pt. Pt was agreeable with this plan. DIAGNOSTICS: CT: Ct abd/pel reveals, per radiologist, polycystic kidney disease. No interval changes. Dr. Fitzpatrick has reviewed this radiology report. DISPO: Current diagnosis of pyelonephritis. Pt is stable for discharge home. MDM: Pt presented to the ED with 3 days of flank pain. High creatinine of 3.[address] abd/pelvic revealed, per radiologist, obstructed stone. Urinalysis was positive for UTI. In the ED course patient was given IV Cipro. Pt will be discharged with a prescription for ciprofloxacin and follow up with PCP. Pt is agreeable with this plan. The documentation as recorded by the Nadine mckay Emily accurately reflects the service I personally performed and the decisions made by , Venus Fitzpatrick MD.
== END 2017-06-24 00:29 | disposition home or self-care (01) ==
LOC: ED 17:54
DX: N12 Tubulo-interstitial nephritis, not specified as acute or chronic (principal); Q61.3 Polycystic kidney, unspecified; R11.10 Vomiting, unspecified; R10.84 Generalized abdominal pain
CPT/HCPCS: 36415; 74176; 80053; 81003; 81015; 83605; 83690; 85025; 86140; 87086; 96365; 96375; 99283; J0744; J2270; J2405

== ENCOUNTER 2019-08-11 10:59 | Emergency (ER) | payer OTHER ==
[2019-08-11 12:12] VITALS: BP 110/73
[2019-08-11 12:28] LABS: Influenza B Molecular POSITIVE (Negative)
--- NOTE | 2019-08-16 09:56 | UC ---
FLU HPI - HPI Summary HPI Summary: Pt presents to With mom. Pt with complex medical history including ESRD on dialysis and PE on anticoaglulantion. Pt here with 24 hours of body aches, fevers, congetion and cough. No sob. no cp, abd pain. Pt does make urine - no change. Pt denies rash. Pt called dialysis today - directed to get tested for flu - will be dialyzed Fri. 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 Onset/Duration: Gradual Onset Severity Currently: Mild Severity Initially: Mild Pain Intensity: 2 Pain Scale Used: 0-10 Numeric - Allergy/Home Medications Allergies/Adverse Reactions: Allergies Allergy/AdvReac Type Severity Reaction Status Date / Time hydromorphone Allergy Hives Verified 08/11/19 12:01 Penicillins Allergy Anaphylatic Verified 08/11/19 12:01 Shock Home Medications: Home Medications Acetaminophen [Acetaminophen Extra Strength] 500 mg PO Q6H PRN 08/11/19 [ History Confirmed 08/11/19] Cyanocobalamin TAB* [Vitamin B12 TAB*] 1,000 mcg PO DAILY 08/11/19 [History Confirmed 08/11/19] Ergocalciferol (Vitamin D2) [Vitamin D2] 50 mcg PO WEEKLY 08/11/19 [History Confirmed 08/11/19] Furosemide TAB* [Lasix TAB*] 40 mg PO DAILY 08/11/19 [History Confirmed 08/11/19 ] Midodrine HCl 10 mg PO TID 08/11/19 [History Confirmed 08/11/19] Omeprazole CAP (NF) [Prilosec CAP* 20 MG] 20 mg PO BEDTIME 08/11/19 [History Confirmed 08/11/19] Ondansetron TAB* [Zofran 4 MG Tab*] 4 mg PO Q4H PRN 08/11/19 [History Confirmed 08/11/19] Phenylephrine/Dm/Acetaminop/GG [Mucinex Fast-Max Cold Flu] 2 cap PO Q6H PRN 12/23 [History Confirmed 08/11/19] Thiamine Mononitrate (Vit B1) [Vitamin B-1] 100 mg PO DAILY 08/11/19 [History Confirmed 08/11/19] Warfarin TAB(*) [Coumadin TAB(*)] 5 mg PO DAILY 08/11/19 [History Confirmed 12/23] diPHENhydraMINE PO* [Benadryl PO 25 MG TAB*] 25 mg PO Q6H PRN 08/11/19 [History Confirmed 08/11/19] traZODone TAB* [Desyrel TAB*] 200 mg PO BEDTIME 08/11/19 [History Confirmed 12/23] PMH/Surg Hx/FS Hx/Imm Hx Previously Healthy: No Endocrine History: Diabetes Cardiovascular History: Hypertension Respiratory History: Pulmonary Embolism - Surgical History Surgical History: Yes Surgery Procedure, Year, and Place: Gastric Bypass, 05/30/19, [place]; Left Orchiectomy - Family History Known Family History: Positive: None, Cardiac Disease, Renal Disease - PKD, Non- Contributory Family History: Polycystic kidney dz - Social History Occupation: Unemployed Lives: With Family Alcohol Use: None Substance Use Type: None Smoking Status (MU): Never Smoked Tobacco - Immunization History Most Recent Influenza Vaccination: 05/2016 Most Recent Pneumonia Vaccination: 01/16/2015 Review of Systems All Other Systems Reviewed And Are Negative: Yes Constitutional: Positive: Fever Skin: Positive: Negative Eyes: Positive: Negative ENT: Positive: Sinus Congestion Respiratory: Positive: Cough. Negative: Shortness Of Breath Cardiovascular: Positive: Negative Gastrointestinal: Positive: Nausea. Negative: Abdominal Pain Genitourinary: Positive: Negative Physical Exam - Summary Physical Exam Summary: Vital Signs Reviewed: Yes A+Ox3, dry heaving Eyes: Conjunctiva Clear, STEPHEN. EOM intact and full ENT: Hearing grossly normal TM x 2 clear, turbiantes inflammed, + PND, mmoist, uvula midline, no exudate, no erythema Neck: Positive: Supple Respiratory: Positive: No respiratory distress, No accessory muscle use + CTA throughout no w/r, mild intermittent cough Cardiovascular: RRR nl s1, s2 no m/r CBT <2 sec abd soft + BS nt/nd no guarding, no distension Musculoskeletal Exam: GUDINO x 4 without difficulty Strength Intact, ROM Intact Neurological: Positive: Alert, + sensation throughout Psychological: Positive: Normal Response To sugar sampler Skin: Positive: no rash, no ecchymosis Triage Information Reviewed: Yes Vital Signs: Initial Vital Signs Temp 97.6 F 08/11/19 11:55 Pulse 82 08/11/19 11:55 Resp 18 08/11/19 11:55 BP 110/73 08/11/19 11:55 Pulse Ox 95 08/11/19 11:55 Flu Course/Dx - Course Course Of Treatment: PT wtih complex medical history - no lung disease, presents with body aches, fever, nausea, dry heaves and congestion vital signs reviewed pt with nasal congestion, + PND + mild cough- no w/r abd soft + influenza d/w pt at length -recommend pt to ED for lab work - missing dialyss today pt would like to fo to [place] - mother will drive will start tamiflu - renal dosing contact 911 if sy change - pt states understanding and agreement with plan hydrate secretion precaution - Differential Dx/Diagnosis Provider Diagnosis: Influenza Discharge ED - Sign-Out/Discharge Documenting (check all that apply): Patient Departure All imaging exams completed and their final reports reviewed: No Studies - Discharge Plan Condition: Stable Disposition: HOME-RECOMMEND TO ED Prescriptions: Oseltamivir CAP* [Tamiflu CAP*] 30 mg PO DAILY #5 cap Patient Education Materials: Influenza (ED) Referrals: Eddie Villagomez MD [Primary Care Provider] - Additional Instructions: - Stay well hydrated. Drink plenty of non-alcoholic, non-caffinated beverages. - Okay to take Tylenol every 6 hours for pain or fever. Take with food. Do NOT take for more than 4-5 days. - These infections are spread by secretions - do NOT share eating or drinking utensils - clean items you share with other people such as cell phones, computer mouse, TV remote, computer tablets,etc. Once you start to feel better, change your toothbrush and your pillowcase. - get plenty of restful sleep - humidify the air in the room where you sleep - boil water, run a hot steam shower, vaporizer, cups of water by heat register The doctor that evaluated you today thinks that you need additional testing that can be completed the emergency department. It is recommended that you go directly to emergency department for further evaluation. This evaluation may include blood work or imaging. This testing will be directed and decided by the provider that evaluate you at the emergency department. If pain becomes worse, you feel lightheaded, you have uncontrolled vomiting, or you have any other concerns while you are being driven to emergency department as recommended to pullover and contact 911. - Billing Disposition and Condition Condition: STABLE Disposition: Home-Recommend to ED
== END 2019-08-11 12:55 | disposition home health service (06) ==
LOC: UCCORT 10:59
DX: J10.1 Influenza due to other identified influenza virus with other respiratory manifestations (principal); E11.22 Type 2 diabetes mellitus with diabetic chronic kidney disease; I12.0 Hypertensive chronic kidney disease with stage 5 chronic kidney disease or end stage renal disease; N18.6 End stage renal disease; Z99.2 Dependence on renal dialysis; Z86.711 Personal history of pulmonary embolism; Z79.01 Long term (current) use of anticoagulants; Z88.5 Allergy status to narcotic agent; Z88.0 Allergy status to penicillin
CPT/HCPCS: 99212; G0463